=== PATIENT | male | born 1965 | race Caucasian/White ===

== ENCOUNTER 2023-01-12 03:25 | Emergency (ER) | payer MEDICARE, MEDICAID, SELFPAY ==
[2023-01-12 03:41] VITALS: BP 159/99; PULSE 72; RESP 16; TEMP 36.3; O2SAT 97; BMI 30.4
== END 2023-01-12 04:43 | disposition left against medical advice (07) ==
PROVIDERS: Emergency Provider Emergency Medicine
DX: I10 Essential (primary) hypertension (principal)
CPT/HCPCS: 99281

== ENCOUNTER 2023-10-12 11:13 | Outpatient (REF) | payer MEDICARE, MEDICAID, SELFPAY ==
--- NOTE | ~2023-10-12 | XR_ITS ---
EXAMINATION: XR KNEE, RIGHT CLINICAL INFORMATION: Osteoarthritis. COMPARISON: Radiograph right knee 09/19/2013. TECHNIQUE: Four views of the right knee. FINDINGS: No fracture or subluxation. Mild tricompartmental joint space narrowing with small marginal osteophytes. Faint chondrocalcinosis in the medial and lateral compartments. No osseous erosions. No joint effusion. XR/XR knee RT 4V IMPRESSION: 1. No acute fracture or subluxation. 2. Mild tricompartmental degenerative osteoarthritis. 3. Faint chondrocalcinosis.
--- NOTE | ~2023-10-12 | XR_ITS ---
EXAMINATION: XR HIP, RIGHT CLINICAL INFORMATION: Pain. COMPARISON: Radiograph pelvis and right hip 06/26/2022. TECHNIQUE: Two views of the right hip. FINDINGS: Again noted end-stage degenerative osteoarthritis of the right hip with bone on bone contact along the superolateral aspect of the acetabulum. Increased deformity/volume loss of the superolateral aspect of the femoral head with increased subcortical cystic changes in the superolateral femoral head and superolateral acetabulum. No significant soft tissue abnormality. XR/XR hip RT min 2V IMPRESSION: Findings most suggestive of progression of end-stage degenerative osteoarthritis of the right hip with avascular necrosis of the femoral head.
[2023-10-12 13:23] LABS: MANUAL DIFF FLAG NO
[2023-10-12 13:41] LABS: Basophils Percent Auto 0.9 % (0-2); Eosinophils Absolute Auto 0.1 X10*3/uL (0.0-0.4); Eosinophils Percent Auto 1.2 % (0-4); Hematocrit 51.6 % (42.0-52.0); Hemoglobin 17.1 g/dl (14.0-18.0); Imm Gran Abs Auto 0.01 X10*3/uL (0.00-0.03); Imm Gran Pct Auto 0.2 % (0.0-0.4); Lymphocytes Absolute Auto 0.9 X10*3/uL (1.2-4.9); Mean Corpuscular HGB Conc 33.1 g/dl (31.0-36.0); Mean Corpuscular Hemoglobin 26.7 pg (27.0-33.0); Mean Corpuscular Volume 80.6 fL (80.0-98.0); Mean Platelet Volume 10.5 fL (9.4-12.4); Monocytes Absolute Auto 0.3 X10*3/uL (0.1-1.2); Monocytes Percent Auto 7.4 % (2-11); Neutrophils Percent Auto 70.3 % (45-73); Platelet Count 211 X10*3/uL (160-400); Red Cell Distribution Width 12.6 % (11.0-16.0); White Blood Count 4.3 X10*3/uL (4.8-10.8)
[2023-10-12 14:24] LABS: Alanine Aminotransferase 17 U/L (0-40); Albumin Level 4.1 g/dL (3.5-5.0); Alkaline Phosphatase 67 U/L (39-117); Anion Gap 13 (12-20); Aspartate Amino Transferase 17 U/L (5-37); Bilirubin Total 0.6 mg/dL (0.0-1.0); Blood Urea Nitrogen 12 mg/dL (9-16); Calcium 9.5 mg/dL (8.4-10.2); Carbon Dioxide 26 mmol/L (22-29); Chloride 105 mmol/L (96-108); Cholesterol 161 mg/dL (<200); Estimated Glomerular Filt Rate > 60; Glucose Random 93 mg/dL (60-115); HDL Cholesterol 49 mg/dL (>40); LDL Cholesterol Calculated 86 mg/dL (<100); Potassium 3.8 mmol/L (3.3-5.1); Sodium 140 mmol/L (135-145); Total Protein 7.6 g/dL (6.5-8.0); Triglycerides 133 mg/dL (<150)
[2023-10-12 14:25] LABS: Prostate Specific Antigen Scr 10.11 ng/mL (<0.05-4.0)
== END 2023-10-12 11:14 | disposition home or self-care (01) ==
LOC: HO.10HDL 11:13
PROVIDERS: Visit Provider Internal Medicine
DX: Z12.5 Encounter for screening for malignant neoplasm of prostate (principal); M16.0 Bilateral primary osteoarthritis of hip; M17.0 Bilateral primary osteoarthritis of knee; I10 Essential (primary) hypertension; M19.91 Primary osteoarthritis, unspecified site; N40.1 Benign prostatic hyperplasia with lower urinary tract symptoms; Z72.0 Tobacco use; Z91.199 Patient's noncompliance with other medical treatment and regimen due to unspecified reason
CPT/HCPCS: 36415; 73502; 73564; 80053; 80061; 84153; 85025

== ENCOUNTER 2024-01-03 14:26 | Outpatient (AMB) | payer MEDICARE, MEDICAID, SELFPAY ==
--- NOTE | 2024-01-03 14:47 | A.OFFVIS_ITS ---
Intake Visit Reasons: Elevated PSA Intake Note: NEW Patient presents today to established treatment for Elevated PSA: Meds- Tamsulosin Allergies to Antibiotic- No Known Allergies Blood Thinner- None Unable to void Post Void Residual: 55 mL Rolling Mill Plugger Required: No Accompanied by: Self / Same As Patient Allergies spider venom [SPIDER BITES] Allergy (Unknown, Verified 01/03/24 14:50) SWELLING HPI Comments Details: Nikhil is a 58-year-old male who is here for evaluation due to elevated PSA. The patient states he was started on tamsulosin by his primary due to obstructive voiding symptoms. He states that when he forgets to take the medication he is getting up more times at night to urinate up to 5 times. I have discussed prostate biopsies for further evaluation following repeat PSA. The patient was unable to provide a urine sample. Bladder scan PVR 55 mL Prostate exam--mild to moderately enlarged, irregular area palpated on the right side. Plan repeat PSA schedule prostate biopsy. 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, left hip HTN (hypertension) Elevated PSA Surgical History History of surgery History of total hip replacement Hx of laminectomy History of hip surgery Family History Father CAD (coronary artery disease) Mother Kidney disease Social History Alcohol intake: current Alcohol intake frequency: holidays/special occasions only Patient Tobacco Use Status: Current everyday Tobacco user Review of Systems Const All systems reviewed & are unremarkable except as noted in HPI and below Reports no additional complaints Eyes Reports no additional complaints ENT Reports no additional complaints Card Reports no additional complaints Resp Reports no additional complaints GI Reports no additional complaints Reports as per HPI Musc Reports no additional complaints Skin/Breast Reports system reviewed and no additional complaints, except as documented Neuro Reports no additional complaints Psych Reports no additional complaints Endo Reports no additional complaints Jaiden/Lymph Reports no additional complaints Aller/Immun Reports no additional complaints Physical Exam Const General: healthy appearing, no acute distress and well developed Orientation/consciousness: patient oriented x3 HEENT Head: Yes normocephalic and Yes atraumatic Eyes Conjunctivae: conjunctivae normal Neck Neck: Yes normal visual inspection Chest Chest palpation & inspection: normal inspection of the chest Resp Effort & Inspection: normal respiratory effort Cardio Rate: regular rate GI Inspection: Yes normal to inspection Palpation (GI): Soft to palpation Other: Prostate Exam: Mild to moderately enlarged irregular/firm right side Penis: normal penis Scrotum: scrotum normal Skin General skin exam: no rashes or lesions noted Neuro General: patient oriented x3 Extrem General: No pedal edema Psych Appearance: grossly normal Affect: normal affect Office Procedures Post Void Residual Post Residual Void Post Void Residual (PVR): 55 [id number] Void Residual by ultrasound Assessment & Plan Assessment & Plan (1) Abnormality detected on rectal examination of prostate: Code(s): N42.9 - Disorder of prostate, unspecified Category: Medical (2) Elevated PSA: Code(s): R97.20 - Elevated prostate specific antigen [PSA] Category: Medical Plan Plan repeat PSA schedule prostate biopsy. Orders: Orders PSA,Total (Free>4and<10) Today N42.9 - Disorder of prostate, unspecified, R97.20 - Elevated prostate specific antigen [PSA] UA and rflx microscopic Today R97.20 - Elevated prostate specific antigen [PSA] AMB Post Void Residual by ultrasound Today N39.8 - Other specified disorders of urinary system Patient Instructions: The patient had an opportunity to ask questions regarding treatment plan. The patient expressed understanding and agreement with the above treatment plan. The patient is aware they should contact our office by phone for worsening of their current condition or the appearance of new symptoms. Compliance is encouraged with any medications and followup testing that is ordered. It is a privilege to be allowed the opportunity to participate in the urologic care of your patient. If you have any questions or concerns regarding treatment for the above conditions please do not hesitate to contact me. The office telephone contact is [phone]. This note is constructed in part using voice recognition software. While every effort has been made to ensure accuracy property inspector errors may have been included. Yours sincerely, Romulo Orozco MD Coding Level of Care Code New Pt Level 4 (27775) Diagnoses Abnormality detected on rectal examination of prostate N42.9 Elevated PSA R97.20 CPT Codes Post Residual Void - PVR CPT Code: 34779-Ilix Void Residual by ultrasound ([id number])
== END 2024-01-03 15:31 | disposition home or self-care (01) ==
LOC: HO.HUSH 14:27
PROVIDERS: PCP Internal Medicine; Visit Provider Urology
DX: N42.9 Disorder of prostate, unspecified (principal); R97.20 Elevated prostate specific antigen [PSA]
CPT/HCPCS: 99204

== ENCOUNTER → 2024-01-03 14:26 | Outpatient (BNVA) | payer MEDICARE, MEDICAID, SELFPAY | PROVIDERS: PCP Internal Medicine; Visit Provider Urology | DX: R97.20 Elevated prostate specific antigen [PSA] (principal); N42.9 Disorder of prostate, unspecified | CPT/HCPCS: 51798; 99202 ==

== ENCOUNTER 2024-02-19 13:39 | Outpatient (REF) | payer MEDICARE, MEDICAID, SELFPAY ==
[2024-02-19 17:04] LABS: PSA,Total (Free>4and<10) 12.33 ng/mL (0.00-4.00)
== END 2024-02-19 13:40 | disposition home or self-care (01) ==
LOC: HO.LAB 13:39
PROVIDERS: PCP Internal Medicine; Visit Provider Urology
DX: N42.9 Disorder of prostate, unspecified (principal); R97.20 Elevated prostate specific antigen [PSA]; Z12.5 Encounter for screening for malignant neoplasm of prostate
CPT/HCPCS: 36415; 84153

== ENCOUNTER 2024-02-21 10:30 | Outpatient (AMB) | payer MEDICARE, MEDICAID, SELFPAY ==
--- NOTE | 2024-02-21 10:31 | A.OFFVIS_ITS ---
Intake Visit Reasons: repeat PSA review Intake Note: Patient presents today for a follow-up on Elevated PSA: Meds- Tamsulosin Allergies to Antibiotic- No Known Allergies Blood Thinner- None MOST RECENT PSA RESULTS: 12.33 ng/mL, 02/19/2024, PSA---10/12/2023--10.11 ng/mL, Save All Operator Required: No Accompanied by: Self / Same As Patient Allergies spider venom [SPIDER BITES] Allergy (Unknown, Verified 01/03/24 14:50) SWELLING Medication List - Last Reconciled 02/21/24 by Romulo Orozco MD ciprofloxacin HCl 500 mg PO BID losartan-hydrochlorothiazide 50-12.5 mg 1 tab PO DAILY nicotine (Nicoderm CQ) 1 patch transdermal DAILY tamsulosin 0.4 mg PO DAILY HPI Comments Details: 02/21/2024--I have discussed with Nikhil repeat PSA results:02/19/2024,-- 12.33 ng/mL, PSA---10/12/2023--10.11 ng/mL, I have discussed scheduling prostate biopsy. Will place on Cipro 500 mg twice a day 1 day prior to biopsy for 3 days. Discussed risks to include but not limited to pain, blood in stool, urine and semen, septicemia, need to repeat biopsy. Nikhil states that he has right hip replacement scheduled at [facility] on April 28. Discussed avoid blood thinners including NSAIDs and aspirin. 30 minutes spent in review of records pertaining to this visit and including discussion with the patient and documentation of this visit. Review of chart: 01/03/24--Nikhil is a 58-year-old male who is here for evaluation due to elevated PSA. The patient states he was started on tamsulosin by his primary due to obstructive voiding symptoms. He states that when he forgets to take the medication he is getting up more times at night to urinate up to 5 times. I have discussed prostate biopsies for further evaluation following repeat PSA. The patient was unable to provide a urine sample. Bladder scan PVR 55 mL Prostate exam--mild to moderately enlarged, irregular area palpated on the right side. Plan repeat PSA schedule prostate biopsy. 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, left hip HTN (hypertension) Elevated PSA Surgical History History of surgery History of total hip replacement Hx of laminectomy History of hip surgery Family History Father CAD (coronary artery disease) Mother Kidney disease Social History Alcohol intake: current Alcohol intake frequency: holidays/special occasions only Patient Tobacco Use Status: Current everyday Tobacco user Review of Systems Const All systems reviewed & are unremarkable except as noted in HPI and below Reports no additional complaints Eyes Reports no additional complaints ENT Reports no additional complaints Card Reports no additional complaints Resp Reports no additional complaints GI Reports no additional complaints Reports as per HPI Musc Reports no additional complaints Skin/Breast Reports system reviewed and no additional complaints, except as documented Neuro Reports no additional complaints Psych Reports no additional complaints Endo Reports no additional complaints Jaiden/Lymph Reports no additional complaints Aller/Immun Reports no additional complaints Telehealth Telehealth Telehealth Platform: [facility] Location of provider rendering services: practice address Location of patient: address on file Patient Identification confirmed using: Name, : Yes Telehealth method: voice only Patient verbally consented to treatment: Yes Patient verbally consented to billing insurance company: Yes Patient informed of any privacy concerns related to visit: Yes Minutes spent on Phone/Video with Pt.: 20 Assessment & Plan Assessment & Plan (1) Abnormality detected on rectal examination of prostate: Code(s): N42.9 - Disorder of prostate, unspecified Category: Medical (2) Elevated PSA: Code(s): R97.20 - Elevated prostate specific antigen [PSA] Category: Medical Plan Plan repeat PSA schedule prostate biopsy. Medications: New ciprofloxacin HCl Start antibiotic 1 day prior to scheduled prostate biopsy 500 mg PO BID 6 tabs 0RF Patient Instructions: The patient had an opportunity to ask questions regarding treatment plan. The patient expressed understanding and agreement with the above treatment plan. The patient is aware they should contact our office by phone for worsening of their current condition or the appearance of new symptoms. Compliance is encouraged with any medications and followup testing that is ordered. It is a privilege to be allowed the opportunity to participate in the urologic care of your patient. If you have any questions or concerns regarding treatment for the above conditions please do not hesitate to contact me. The office telephone contact is [phone]. This note is constructed in part using voice recognition software. While every effort has been made to ensure accuracy it lead errors may have been included. Yours sincerely, Romulo Orozco MD Coding Level of Care Code Tele Est Pt Level 4 (60812) Diagnoses Abnormality detected on rectal examination of prostate N42.9 Elevated PSA R97.20
--- OUTSIDE RECORDS SUMMARY | 2024-02-21 10:32 | XMS_ITS | Continuity of Care Document ---
Author Organization [facility] ter Address [address] [place] [id number]- Care Team Providers Care Bottom Cager Name Role Phone Kristyn Ramírez MD Primary Care Physician [phone] [place] [facility] [place] 11/13/21 - 11/18/[address] [address]- Encounter Diagnosis Concussion(Final) - 11/14/21 Discharge Disposition: A-D/C Home Attending Physician: Troy Fonseca MD Admitting Physician: Troy Fonseca MD Referring Physician: Not on Staff, Referring MD Allergies, Adverse Reactions, Alerts No Known Allergies Immunizations Given and Recorded Vaccine Date Status Refusal Reason influenza virus vaccine, inactivated 11/14/21 Give n SARS-CoV-2 (COVID-19) mRNA BNT-162b2 vac 06/06/21 Recorded SARS-CoV-2 (COVID-19) mRNA BNT-162b2 vac 05/19/21 Recorded Medications acetaminophen 325 mg oral tablet 975 mg, 3, tablet, By Mouth, Every 6 hours, # 30 tablet, Refills 0, Tot. Refills 0, Maintenance, 11/18/21 10:28:00 EST, Route to Pharmacy Electronically, [facility]/pharmacy #[id number], Partial fill upon patientrequest if the prescription is for a schedule II op... Start Date: 11/18/21 Status: Ordered amLODIPine 5 mg oral tablet 5 mg, Tablet, By Mouth, Hold for: SBP < 110, 11/18/21 9:00:00 EST Start Date: 11/18/21 Stop Date: 11/18/21 Status: Completed amLODIPine 5 mg oral tablet 5 mg, 1, tablet, By Mouth, Daily, # 30 tablet, Refills 0, Tot. Refills 0, Maintenance, 11/18/21 10:28:00 EST, Route to Pharmacy Electronically, [facility]/pharmacy #[id number], Partial fill upon patient request if the prescription is for a schedule II opioid drug.... Start Date: 11/18/21 Status: Ordered folic acid 1 mg oral tablet 1 mg, 1, tablet, By Mouth, Daily, # 30 tablet, Refills 0, Tot. Refills 0, Maintenance, 11/18/21 10:28:00 EST, Route to Pharmacy Electronically, [facility]pharmacy #[id number], Partial fill upon patient request if the prescription is for a schedule II opioid drug.... Start Date: 11/18/21 Status: Ordered gabapentin 100 mg oral capsule 100 mg, Capsule, By Mouth, 11/18/21 9:00:00 EST, Stop date 11/18/21 9:00:00 EST Start Date: 11/18/21 Stop Date: 11/18/21 Status: Completed gabapentin 100 mg oral capsule 100 mg, 1, capsule, By Mouth, 3 times a day, # 90 capsule, Refills 0, Tot. Refills 0, Maintenance, 11/18/21 10:28:00 EST, Route to Pharmacy Electronically, [facility]pharmacy [id number], Partial fill upon patient request if the prescription is for a schedule II... Start Date: 11/18/21 Status: Ordered ibuprofen 600 mg oral tablet 600 mg, Tablet, By Mouth, 11/18/21 9:00:00 EST, Stop date 11/18/21 9:00:00 EST Start Date: 11/18/21 Stop Date: 11/18/21 Status: Completed ibuprofen 600 mg oral tablet 600 mg, 1, tablet, By Mouth, 3 times a day, with food or milk, # 30 tablet, Refills 0, Tot. Refills0, Maintenance, 11/18/21 10:28:00 EST, Route to Pharmacy Electronically, [id number], Partial fill upon patient request if the prescription is f... Start Date: 11/18/21 Status: Ordered Multivitamin Tablet 1 tablet, By Mouth, Daily, 0 Refills, Maintenance, 11/18/21 10:17:00 EST, Tablet, Partial fill uponpatient request if the prescription is for a schedule II opioid drug. Start Date: 11/18/21 Status: Ordered oxyCODONE 5 mg oral tablet 5 mg, 1, tablet, By Mouth, Every 4 hours, PRN, # 5 tablet, Refills 0, Tot. Refills 0, Maintenance, Pain , Severe, 11/18/21 10:28:00 EST, Route to Pharmacy Electronically, [facility]/pharmacy #[id number], Partial fill upon patient request if the prescription is for... Start Date: 11/18/21 Status: Ordered oxyCODONE 5 mg oral tablet 5 mg, Tablet, By Mouth, Every 4 hours for 7 days, Hold for: SBP < 90, HR < 60, RR < 8, PRNfor Pain , Severe, Routine, 11/13/21 11:16:00 EST, Stop date 11/20/21 11:15:00 EDT Start Date: 11/13/21 Stop Date: 11/18/21 Status: Discontinued pyridoxine 50 mg oral tablet 50 mg, 1, tablet, By Mouth, Daily, # 30 tablet, Refills 0, Tot. Refills 0, Maintenance, 11/18/21 10:27:00 EST, Route to Pharmacy Electronically, [facility]acy [id number], Partial fill upon patient request if the prescription is for a schedule II opioid drug... Start Date: 11/18/21 Status: Ordered thiamine 100 mg oral tablet 100 mg, 1, tablet, By Mouth, Every 12 hours, # 90 tablet, Refills 0, Tot. Refills 0, Maintenance, 11/18/21 10:18:00 EST, Route to Pharmacy Electronically, [id number], Partial fill upon patient request if the prescription is for a schedule II o... Start Date: 11/18/21 Status: Ordered Problem List Condition Effective Dates Status Health Status Inform ant Abscess of R forearm(Confirmed) Active CKD (chronic kidney disease) stage 3, GFR 30-59 ml/min(Confirmed) Active Chronic lower back pain(Confirmed) Active Chronic low back pain(Confirmed) Active Renal cyst, right(Confirmed) Active History of intravenous drug abuse(Confirmed) Active Obese class I(Confirmed) Active Opioid dependence(Confirmed) Active OA (osteoarthritis) of knee(Confirmed) Active Inguinal hernia, right(Confirmed) Active Substance use disorder(Confirmed) Active Results Radiology Reports * Exam Date Time Procedure Performing Provider Status 11/13/21 8:16 AM Hand Min 3 Views Left Nenita Hinton; Osman (Verified) Notes: (Hand Min 3 Views Left) Reason For Exam: Trauma RESULT: Hand Min 3 Views Left Hand Min 3 Views Left, 3 views Reason: Trauma; Clinical Question(s): Fracture COMPARISON: None. FINDINGS: Severe first CMC osteoarthritis. No evidence of fracture or dislocation. IMPRESSION: No evidence of fracture or dislocation. Severe first CMC osteoarthritis WSN: [id number] Ordering Physician: Nisreen Valdivia Dictated By: Tapan Caba MD Dictated Date/Time: 11/13/21 8:27 am Reviewed By: Tapan Caba MD Signed By: Tapan Caba MD Signed Date/Time: 11/13/21 8:27 am Transcribed By: SAUL Transcribed Date/Time: 11/13/21 8:25 am * Exam Date Time Procedure Performing Provider Status 11/13/21 8:16 AM Knee 1 or 2 Views Right Nenita Hinton ; Osman (Verified) Notes: (Knee 1 or 2 Views Right) Reason For Exam: Trauma RESULT: Knee 1 or 2 Views Right Knee 1 or 2 Views Right, 2 views Reason: Trauma; Clinical Question(s): Fracture; Special Instructions: Patella ([place]) COMPARISON: None. FINDINGS: There is no evidence of acute fracture or dislocation. There are tricompartment osteoarthritic changes with spurring. Evaluation of the patella is limited because a sunrise view was not obtained. IMPRESSION: Degenerative changes without evidence of acute fracture or dislocation. Evaluation of the patella is limited because a sunrise view was not obtained. WSN: [id number] Ordering Physician: Nisreen Valdivia Dictated By: Alyssa St MD Dictated Date/Time: 11/13/21 8:21 am Reviewed By: Alyssa St MD Signed By: Alyssa St MD Signed Date/Time: 11/13/21 8:21 am Transcribed By: SAUL Transcribed Date/Time: 11/13/21 8:18 am * Exam Date Time Procedure Performing Provider Status 11/13/21 8:16 AM Tibia/Fibula 2 Views Left Matthew Hinton (Verified) Notes: (Tibia/Fibula 2 Views Left) Reason For Exam: Trauma RESULT: Tibia/Fibula 2 Views Left Tibia/Fibula 2 Views Left Reason: Trauma; Clinical Question(s): Fracture COMPARISON: None. FINDINGS: No fractures or bone lesions. Visualized joints are normal. Normal soft tissues. IMPRESSION: Normal. WSN: [id number] Ordering Physician: Nisreen Valdivia Dictated By: Alyssa St MD Dictated Date/Time: 11/13/21 8:18 am Reviewed By: Alyssa St MD Signed By: Alyssa St MD Signed Date/Time: 11/13/21 8:18 am Transcribed By: SAUL Transcribed Date/Time: 11/13/21 8:17 am * Exam Date Time Procedure Performing Provider Status 11/13/21 7:39 AM Chest Portable Tracy Mai; Auth (V erified) Notes: (Chest Portable) Reason For Exam: Other: RESULT: Chest Portable Chest Portable Reason: Other:; Clinical Question(s): Trauma COMPARISON: None. FINDINGS: LINES AND TUBES: None. LUNGS AND PLEURA: Clear lungs. Normal pulmonary vascularity. No pleural effusion. No pneumothorax. HEART, MEDIASTINUM AND CATHY: Heart is normal in size. Normal upper mediastinal and hilar contour. BONES AND SOFT TISSUES: No acute abnormality. IMPRESSION: No acute abnormality. WSN: [id number] Ordering Physician: Nisreen Valdivia Dictated By: Alyssa St MD Dictated Date/Time: 11/13/21 7:50 am Reviewed By: Alyssa St MD Signed By: Alyssa St MD Signed Date/Time: 11/13/21 7:50 am Transcribed By: SAUL Transcribed Date/Time: 11/13/21 7:49 am * Exam Date Time Procedure Performing Provider Status 11/13/21 7:39 AM Pelvis 1 or 2 Views Tracy Mai; Au th (Verified) Notes: (Pelvis 1 or 2 Views) Reason For Exam: Trauma RESULT: Pelvis 1 or 2 Views Pelvis 1 or 2 Views Reason: Trauma; Clinical Question(s): Other: COMPARISON: None. FINDINGS: Status post total left hip arthroplasty. There is a cortical step-off at the superior right pubic ramus. There are pelvic calcifications compatible with phleboliths. IMPRESSION: Cortical step-off at the superior right pubic ramus which may represent a minimally displaced fracture. Clinical correlation and follow-up is recommended. A [facility] message has been communicated via the [employer] system on 11/13/2021 8:16 AM, Message ID [id number]. WSN: [id number] Ordering Physician: Nisreen Valdivia Dictated By: Alyssa St MD Dictated Date/Time: 11/13/21 8:16 am Reviewed By: Alyssa St MD Signed By: Alyssa St MD Signed Date/Time: 11/13/21 8:16 am Transcribed By: SAUL Transcribed Date/Time: 11/13/21 7:43 am Vital Signs Most recent to oldest [Reference Range]: 1 2 3 Height 172.7 cm (11/18/21 7:28 AM) 172.7 cm (11/17/21 3:41 PM) 172.7 cm (11/17/21 11:43 AM) Weight 91.54 kg (11/18/21 9:52 AM) 91.7 kg (11/13/21 6:54 PM) 91.7 kg (11/13/21 6:28 PM) Oxygen Saturation [94-100 %] 100 % (11/18/21 7:28 AM) 98 % (11/18/21 4:00 AM) 95 % (11/18/21 12:00 AM) Pulse Rate [55-90 bpm] 67 bpm (11/18/21 7:28 AM) 59 bpm (11/18/21 4:00 AM) 60 bpm (11/18/21 12:00 AM) Body Mass Index [18.5-24.99] 30.75 *>HHI* (11/13/21 6:54 PM) 30.75 *>HHI* (11/13/21 6:28 PM) Blood Pressure [90-138/55-84 mm Hg] 148/88mm Hg *H* (11/18/21 9:15 AM) 148/88mm Hg *H* (11/18/21 7:28 AM) 116/53mm Hg (11/18/21 4:00 AM) Respiratory Rate [16-30 br/min] 18 br/min (11/18/21 12:05 PM) 16 br/min (11/18/21 10:34 AM) 16 br/min (11/18/21 10:34 AM) Temperature [96.8-100.4 DegF] 97.8 DegF (11/18/21 7:28 AM) 98.1 DegF (11/18/21 4:00 AM) 97.8 DegF (11/18/21 12:00 AM) Mode of Delivery (Oxygen) Room air (11/18/21 7:28 AM) Room air (11/18/21 4:00 AM) Room air (11/18/21 12:00 AM) Blood pressure sites Arm, right (11/18/21 7:28 AM) Arm, left (11/18/21 4:00 AM) Arm, left (11/18/21 12:00 AM) Temperature Route Oral (11/18/21 7:28 AM) Oral (11/18/21 4:00 AM) Oral (11/18/21 12:00 AM) Dry Weight 91.7 kg (11/13/21 6:54 PM) 91.7 kg (11/13/21 6:28 PM) Weight Obtained Via Bed scale (11/13/21 6:54 PM) Bed scale (11/13/21 6:28 PM) Dry Weight Obtained Via Bed scale (11/13/21 6:54 PM) Social History Social History Type Response Smoking Status Current every day delfino vaca entered on: 04/13/16 Sex
== END 2024-02-21 14:42 | disposition home or self-care (01) ==
LOC: HO.HUSH 10:30
PROVIDERS: PCP Internal Medicine; Visit Provider Urology
DX: N42.9 Disorder of prostate, unspecified (principal); R97.20 Elevated prostate specific antigen [PSA]
CPT/HCPCS: 99214

== ENCOUNTER → 2024-02-21 10:30 | Outpatient (BNVA) | payer MEDICARE, MEDICAID, SELFPAY | PROVIDERS: PCP Internal Medicine; Visit Provider Urology ==

== ENCOUNTER 2024-04-22 10:39 | Outpatient (REF) | payer MEDICARE, MEDICAID, SELFPAY ==
--- NOTE | 2024-04-22 | EMG_ITS ---
Bilateral median and ulnar motor and sensory studies were performed. Bilateral radial sensory studies were performed, and paraspinal muscles were tested with a needle. IMPRESSION: 1. Moderately severe bilateral median neuropathy across carpal tunnel. 2. Mild to moderate bilateral ulnar neuropathy across cubital tunnel. 3. Left radial sensory neuropathy. MD PATRICIA Fraser/RADHA / [id number]
== END 2024-04-22 10:40 | disposition home or self-care (01) ==
LOC: HO.NEURO 10:39
PROVIDERS: PCP Internal Medicine; Visit Provider Internal Medicine
DX: G56.03 Carpal tunnel syndrome, bilateral upper limbs (principal)
CPT/HCPCS: 95886; 95911

== ENCOUNTER 2024-05-08 04:11 | Emergency (ER) | payer MEDICARE, MEDICAID, SELFPAY ==
[2024-05-08 04:28] VITALS: BP 106/61; PULSE 81; RESP 16; TEMP 36.9; O2SAT 98; BMI 28.7
--- NOTE | 2024-05-08 05:08 | ED.EXTPRO ---
HPI - Extremity Problem General Chief complaint: Extremity Problem Stated complaint: L arm pain Time Seen by Provider: 05/08/24 05:08 Source: patient Mode of arrival: ambulatory Limitations: no limitations History of Present Illness ED Provider: Dr. Woods HPI Narrative: Patient with a history of IVDU, cervical spine surgery with cervical radiculopathy who presents with numbness to his left hand. Patient shows his numbness to his hand to be in the median nerved distribution but has had prior carpal tunnel surgery. He had an EMG 10 days ago but does not know the results. He also describes the pain radiating down the left side of his neck. He has had prior cervical spine surgery. MD Complaint: extremity pain Onset (ago): month(s) Related Data Home Medications ?Medication ?Instructions ?Recorded ?Confirmed losartan 50 mg-hydrochlorothiazide 1 tab PO DAILY 01/03/24 02/21/24 12.5 mg tablet nicotine 21 mg/24 hr daily 1 patch transdermal DAILY 01/03/24 02/21/24 transdermal patch (Nicoderm CQ) tamsulosin 0.4 mg capsule 0.4 mg PO DAILY 01/03/24 02/21/24 Previous Rx's ?Medication ?Instructions ?Recorded ciprofloxacin HCl 500 mg tablet 500 mg PO BID #6 tabs 02/21/24 pregabalin 100 mg capsule (Lyrica) 100 mg PO BID #20 caps 05/08/24 Allergies Allergy/AdvReac Type Severity Reaction Status Date / Time spider venom [SPIDER BITES] Allergy Unknown SWELLING Verified 05/08/24 04:31 Review of Systems Review of Systems: Yes all other systems are reviewed and are negative Neurologic: Denies Sensory deficit (Neuro) PMFSH Past Medical History Medical History Other osteonecrosis, 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, left hip HTN (hypertension) Elevated PSA Surgical History History of surgery History of total hip replacement Hx of laminectomy History of hip surgery Family History Family History Father CAD (coronary artery disease) Mother Kidney disease Social History Social History Alcohol intake: current Alcohol intake frequency: holidays/special occasions only Patient Tobacco Use Status: Current everyday Tobacco user Physical Exam Vital Signs: Vital Signs: Last Vital Signs Temp 98.1 F 05/08/24 05:23 Pulse 77 05/08/24 05:23 Resp 18 05/08/24 05:23 BP 112/67 05/08/24 05:23 Pulse Ox 97 05/08/24 05:23 O2 Del Method Room Air 05/08/24 05:23 BMI result Body Mass Index 28.7 Const: General: healthy appearing Nutritional Appearance: average body habitus Orientation/consciousness: oriented to person and patient oriented x3 Limitations: no limitations HEENT: Head: Yes normal to inspection Ears: external ears normal General nose exam: Normal external nose present Mouth: Normal oral and palatal mucosa present and oropharynx normal Throat: Yes posterior oropharynx normal Eyes: General: appearance normal, both eyes and all related structures Neck: Other: supple Neck: Yes normal visual inspection Chest: Chest palpation & inspection: normal inspection of the chest Resp: Auscultation: clear to auscultation bilaterally Cardio: Jugular venous distension: no JVD Rate: regular rate Rhythm: regular rhythm Heart sounds: S1 normal heart sound present and S2 normal heart sound present GI: Inspection: Yes normal to inspection Palpation (GI): Soft to palpation, nontender and No hepatosplenomegaly present Auscultation: normal bowel sounds : General: Yes no CVA tenderness Back/Spine/Pelvis: Back: no CVA tenderness Skin: Other: old track gonzales to both arms Neuro: General: oriented to person and patient oriented x3 Cranial nerves: Yes CN's II-XII intact bilaterally Motor exam (neuro): 5/5 motor strength present throughout Sensory Exam: No Sensory deficit (Neuro) Extrem: Other: good bilateral pulses General: Yes normal to inspection Psych: Appearance: grossly normal Course Reevaluation(s) Reevaluation #1: Patient with a description of cervical radiculopathy and carpal tunnel. Will start lyrica and have the patient follow up for his EMG results. Will refer to Dr. Snider Time: 05:31 Medications Administered Discontinued Medications Generic Name Dose Route Start Last Admin Trade Name Freq PRN Reason Stop Dose Admin Gabapentin 300 mg 05/08/24 05:17 05/08/24 05:27 Gabapentin 300 Mg Capsule PO 05/08/24 05:18 Not Given ONCE ONE Pregabalin 100 mg 05/08/24 05:29 05/08/24 05:33 Pregabalin 100 Mg Capsule PO 05/08/24 05:30 100 mg ONCE ONE Administration Medical Decision Making Differential Diagnosis Differential Diagnoses: The differential diagnosis associated with the presentation includes (cervical radiculopathy, carpal tunnel) Tests considered The following testing was considered but not selected: MRI of cervical spine but patient nonfocal and has had prior surgery Social Determinants Patient?s care significantly limited by Social Determinants of Health including: Alcoholism and drug addiction in family Discharge Plan Discharge Clinical Impression: Cervical disc disorder with radiculopathy, Carpal tunnel syndrome Patient Disposition: Home, Self-Care Instructions: Cervical Disc Herniation (ED), Carpal Tunnel Surgery (DC) Prescriptions: New pregabalin [Lyrica] 100 mg capsule 100 mg PO BID Qty: 20 0RF No Action tamsulosin 0.4 mg capsule 0.4 mg PO DAILY losartan-hydrochlorothiazide 50-12.5 mg tablet 1 tab PO DAILY nicotine [Nicoderm CQ] 21 mg/24 hr patch 24 hour 1 patch transdermal DAILY ciprofloxacin HCl 500 mg tablet 500 mg PO BID Qty: 6 0RF Rx Instructions: Start antibiotic 1 day prior to scheduled prostate biopsy Referrals: Kathie Villalta MD [Physician] - 3 days Print Language: Maltese
[2024-05-08 05:23] VITALS: BP 112/67; PULSE 77; RESP 18; TEMP 36.7; O2SAT 97
[2024-05-08] MEDS: Pregabalin 100 MG CAPSULE PO (05:33)
[2024-05-08 05:40] VITALS: BP 112/67; PULSE 77; RESP 18; TEMP 36.7; O2SAT 97
--- OUTSIDE RECORDS SUMMARY | 2024-05-08 06:03 | XMS_ITS ---
Author Organization [facility] Address [address] [place] [address] Phone Care Team Providers Care Oracle Programmer Name Role Phone [facility] Unavailable [phone] Plan of Treatment No Plan of Treatment Recorded Assessments Includes: Assessments for all patient encounters No Assessments Recorded Medical Equipment - Implanted Devices Includes: Current and historical Devices No Medical Equipment Recorded Medications Administered Includes: Administered Medications in patient's chart No Administered Medications Recorded Results Includes: Results from 05/08/2023 through 05/08/2024 No Results Recorded For Specified Dates History of Present Illness History of Present Illness not supported for this document type No History of Present Illness Recorded Social History No Social History Recorded - Smoking Status Unknown Medical History Includes: Medical History in patient's chart No Medical History Recorded Family History Includes: Family History in patient's chart No Family History Recorded Review of Systems Review of Systems not supported for this document type No Review of Systems Recorded Mental Status No Mental Status Recorded Functional Status No Functional Status Recorded Physical Exam Physical Exam not supported for this document type No Physical Exam Recorded Insurance Includes: Active Insurance Policies Plan Name Member ID Group # Subscriber Relationship Effect leroy Dates 1 - Medicare Part B of [place] [id number] ALLA Tinsley 2 - Health Safety Net - [facility] [id number] ALLA Tinsley Clinical Notes Includes: Signed Clinical Notes starting from 08/20/2022 No Clinical Notes Recorded
--- OUTSIDE RECORDS SUMMARY | 2024-05-08 06:04 | XMS_ITS | Clinical Summary ---
Author Organization [facility] Address [address] [place] [address] Phone Care Team Providers Care Wall Taper Helper Name Role Phone [facility] Unavailable Unavailable Reason for Visit and Chief Complaint Post Op Visit/Follow Up Plan of Treatment No Plan of Treatment Recorded Assessments Includes: Assessments from this encounter No Assessments Recorded Medical Equipment - Implanted Devices Includes: Current Devices No Medical Equipment Recorded Medications Administered Includes: Administered Medications from this encounter No Administered Medications Recorded Results Includes: Results discussed during this encounter No Results Recorded For Specified Dates History of Present Illness Includes: History of Present Illness from this encounter No History of Present Illness Recorded Social History No Social History Recorded - Smoking Status Unknown Medical History Includes: Medical History addressed during this encounter No Medical History Recorded Family History Includes: Family History addressed during this encounter No Family History Recorded Review of Systems Includes: Review of Systems from this encounter No Review of Systems Recorded Mental Status Includes: Mental Status from this encounter No Mental Status Recorded Functional Status Includes: Functional Status from this encounter No Functional Status Recorded Physical Exam Includes: Physical Exam from this encounter No Physical Exam Recorded Insurance Includes: Active Insurance Policies Plan Name Member ID Group # Subscriber Relationship Effect leroy Dates 1 - Medicare Part B [facility] [id number] ALLA Tinsley 2 - Health Safety Net - [facility] [id number] ALLA Tinsley Clinical Notes Includes: Clinical Notes from this encounter No Clinical Notes Recorded
--- OUTSIDE RECORDS SUMMARY | 2024-05-08 06:04 | XMS_ITS ---
Care Plan - [facility] Created on: May 08, 2024 ALLA MILLS : 1965 Sex: Male Author Organization [facility] Address [address] [place] [address] Phone Care Team Providers Care Stop Attacher Name Role Phone [facility] Unavailable Unavailable
--- OUTSIDE RECORDS SUMMARY | 2024-05-08 06:04 | XMS_ITS | Patient Health Record ---
Author Organization [facility] Address [address] [place] [address] Care Team Providers Care School Custodian Name Role Phone Kristyn Ramírez Primary Care Provider Unavailab Sanju Ramirez Unavailable [phone] REASON FOR REFERRAL No Information SOCIAL HISTORY Sex Assigned At : Social History Observation Description Sex Assigned At Unknown Encounters Encounter Location Date Provider Diagnosis [facility] [address] [place] [id number] 07/19/2023 Sanju Rodriguez [facility] [address] [place] [phone] 07/19/2023 Sanju Rodriguez PLAN OF TREATMENT No Information Insurance Providers Payer Name Payer Address Payer Phone Subscriber Number Group Number Insured Name Patient Relationship to Insured Coverage Start Date Coverage End Date A[employer] Medicare Advantage Plan [address] [address] [place] [phone] [id number] ALLA MILLS Self - patient is the insured
--- OUTSIDE RECORDS SUMMARY | 2024-05-08 06:04 | XMS_ITS | Clinical Summary ---
Author Organization [facility] Address [address] [place] [address] Phone Care Team Providers Care Automotive Parts Specialist Name Role Phone [facility] Unavailable Unavailable Reason for Visit and Chief Complaint Established Patient Plan of Treatment No Plan of Treatment [...] leroy Dates 1 - Medicare Part B [facility] [id number] ALLA Tinsley 2 - Health Safety Net - [facility] [id number] ALLA Tinsley Clinical Notes Includes: Clinical Notes from this encounter No Clinical Notes Recorded
--- OUTSIDE RECORDS SUMMARY | 2024-05-08 06:04 | XMS_ITS ---
Author Organization [facility] Address [address] [place] [address] Care Team Providers Care Inspector And Unloader Name Role Phone Kristyn Ramírez Primary Care Provider Unavailab Sanju Ramirez Unavailable [phone] REASON FOR VISIT Patient presents today for a COLON SCREENING Encounters Encounter Location Date Provider Diagnosis [facility] [address] [place] [address] 07/19/2023 Sanju Rodriguez PLAN OF TREATMENT No Information
--- OUTSIDE RECORDS SUMMARY | 2024-05-08 06:04 | XMS_ITS | Clinical Summary ---
Author Organization [facility] Address [address] [place] [address] Phone Care Team Providers Care Press Worker Helper Name Role Phone [facility] Unavailable Unavailable Reason for Visit and Chief Complaint Post Op Visit/Follow Up Plan of Treatment Pending Tests Order Diagnosis Results Due Ordering P rovider Follow Up - Appointment 3 weeks Cutaneou s abscess of right upper limb 06/08/22 Bailee Tamayo PA-C Last Documented On 10:43AM ; [facility] Assessments Includes: Assessments from this encounter No Assessments Recorded Medical Equipment - Implanted Devices Includes: Current Devices No Medical Equipment Recorded Medications Administered Includes: Administered Medications from this encounter No Administered Medications Recorded Vital Signs Includes: Vital Signs from this encounter Vital Name 06/08/2022 10:22A Blood Pressure Sitting (mmHg) 138/87 Pulse Rate-Sitting (bpm) 89 Temp-Temporal 97.7 Height (in) 69 Weight (lb) 200 Body Mass Index (kg/m2) 29.5 Body Surface Area (m2) 2.1 Oxygen Saturation (%) 96 Last Documented: On 06/08/2022 10:22A M ; [facility] Results Includes: Results discussed during this encounter [...] Exam Includes: Physical Exam from this encounter Encounters Encounter Provider Location Date Check-In Time Check-Out Time Diagnosis Post Op Visit/Follow Up Bailee Tamayo PA-C [facility] 06/08/20 22 9:20AM 10:36AM Insurance Includes: Active Insurance Policies Plan Name Member ID Group # Subscriber Relationship Effect leroy Dates 1 - Medicare Part B [facility] [id number] ALLA Tinsley 2 - Health Safety [facility] [id number] ALLA Tinsley Clinical Notes Includes: Clinical Notes from this encounter No Clinical Notes Recorded
--- OUTSIDE RECORDS SUMMARY | 2024-05-08 06:04 | XMS_ITS ---
Author Organization [facility] Address [address] [place] [address] Care Team Providers Care Registration Specialist Name Role Phone Kristyn Ramírez Primary Care Provider Unavailab Sanju Ramirez Unavailable [phone] REASON FOR VISIT New pt no show Encounters Encounter Location Date Provider Diagnosis [facility] [address] [place] [address] 07/19/2023 Sanju Rodriguez PLAN OF TREATMENT No Information
== END 2024-05-08 06:11 | disposition home or self-care (01) ==
LOC: HO.ED 06:02
PROVIDERS: Emergency Provider Emergency Medicine; PCP Internal Medicine
DX: M54.12 Radiculopathy, cervical region (principal); G56.02 Carpal tunnel syndrome, left upper limb; M54.2 Cervicalgia; Z79.899 Other long term (current) drug therapy
CPT/HCPCS: 99283; 99284

== ENCOUNTER 2024-06-06 15:04 | Outpatient (AMB) | payer MEDICARE, MEDICAID, SELFPAY ==
--- NOTE | 2024-06-06 15:15 | MHC.OFFVIS ---
Intake Visit Reasons: HIDE STRETCHER HAND- LT hand numbness, CTS Intake Note: Nikhil is a 59 year old right hand dominant male who presents today as a new patient with complaints of left hand numbness and tingling. EMG was done on 04/22/2024. Patient reports he is having pain in his left wrist and numbness and tingling in the 1st, 2nd, 3rd and medial side of 4th digits. He expresses going to ED about 3 weeks ago where he was prescribed Lyrica for his left wrist pain. He expresses relief with this prescription. He expresses difficulty with gripping, grasping, and lifting. He expresses constantly dropping objects. Patient would like to discuss surgery if needed. Hx of Left & Right Carpal Tunnel Releases about 15 years ago. Allergies spider venom [SPIDER BITES] Allergy (Unknown, Verified 06/06/24 15:19) SWELLING HPI HPI HIDE STRETCHER HAND- LT hand numbness, CTS: Details: Patient is a 59-year-old male who presents for evaluation of bilateral hand numbness and tingling, with EMG done revealing moderate to severe carpal tunnel syndrome bilaterally. Of note, the patient has had bilateral carpal tunnel releases previously, approximately 15 years ago. The patient reports that his symptoms are constant, daily, and worse at night on the left, and intermittent, but daily, and worse at night on the right. Patient also states that he has significant pain over the radial styloid of the left wrist that makes it very difficult for him to lift anything heavy or move his left hand. The patient denies any numbness in the bilateral small fingers. No other acute complaints or concerns at this time. 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, left hip HTN (hypertension) Elevated PSA Surgical History History of surgery History of total hip replacement Hx of laminectomy History of hip surgery Family History Father CAD (coronary artery disease) Mother Kidney disease Social History Alcohol intake: current Alcohol intake frequency: holidays/special occasions only Patient Tobacco Use Status: Current everyday Tobacco user Tobacco use type: Cigarette Review of Systems Const All systems reviewed & are unremarkable except as noted in HPI and below Physical Exam Extrem Other: Neuro: Decreased sensation in the median nerve distribution of the left hand. Normal sensation to all other digits in the left hand today. Normal sensation in the tips of all digits of the right hand today. No thenar or intrinsic wasting. Weakened APB muscle belly firing in the left Good finger cross Pain: Patient has significant tenderness to palpation over the radial styloid of the left wrist. Vascular: Capillary refill brisk. ROM: Patient can make a fist and extend all their digits. Skin: No lacerations or abrasions noted. General: No ecchymosis. No erythema or evidence of infection. Positive Inés test in the left Results Reviewed Results Reviewed: IMPRESSION: 1. Moderately severe bilateral median neuropathy across carpal tunnel. 2. Mild to moderate bilateral ulnar neuropathy across cubital tunnel. 3. Left radial sensory neuropathy. MD PATRICIA Fraser/RADHA Assessment & Plan Assessment & Plan (1) Carpal tunnel syndrome, bilateral: Code(s): G56.03 - Carpal tunnel syndrome, bilateral upper limbs Category: Medical (2) De Quervain's tenosynovitis, left: Code(s): M65.4 - Radial styloid tenosynovitis [de Quervain] Category: Medical (3) Cubital tunnel syndrome, bilateral: Code(s): G56.23 - Lesion of ulnar nerve, bilateral upper limbs Category: Medical Plan 1. Carpal tunnel syndrome, left 2. De Quervain tenosynovitis, left Symptoms constant, daily, worse at night I educated the patient about the condition. I discussed both operative and nonoperative treatment options. The patient would like to proceed with surgery. Patient is educated that even with surgery, due to him having Dense numbness, there is an increased risk that he does not get normal sensation back. Patient understands this. The risks and benefits of operative treatment were discussed with the patient and the patient wishes to proceed with surgery. These risks include, but are not limited to, risk of damage to blood vessels, nerves, tendons, infection, recurrence, incomplete relief of preoperative symptoms, persistent pain, possible need for further surgery, and the risks associated with regional blocks and/or anesthesia. Plan is to take the patient to the operating room at some point in the next few weeks for the following procedures: 1. Left carpal tunnel revision under local anesthesia 2. Left 1st dorsal compartment release under local anesthesia All of the preoperative paperwork including the consent was discussed today. All of the patient's questions were answered in the clinic today. The patient understands that they will be in contact with our surgical brace maker to discuss scheduling their procedure. Patient denies diabetes, blood thinners, asthma, heart issues, lung issues. Patient does report that he does have stage 3 chronic kidney disease, and is also a current smoker Patient is educated on the effects of smoking on wound healing, and is counseled that he should stop smoking, not only for wound healing but for a multitude of other health reasons. 3. Carpal tunnel syndrome, right Symptoms intermittent, but daily, worse at night Patient would like to proceed with operative treatment and left side 1st Patient is informed that we can discuss operative treatment on the right when he has begun the postoperative period On the left side if he is healing well Patient is amenable to this plan Patient will follow-up as needed with any acute concerns 4. Bilateral cubital tunnel syndrome Patient denies any numbness in the bilateral small fingers, therefore an any treatment for cubital tunnel syndrome is not necessary at this time Patient is amenable to this plan Coding Level of Care Code New Pt Level 4 (36339) Diagnoses Carpal tunnel syndrome, bilateral G56.03 De Quervain's tenosynovitis, left M65.4 Cubital tunnel syndrome, bilateral G56.23
== END 2024-06-06 15:59 | disposition home or self-care (01) ==
PROVIDERS: PCP Internal Medicine
DX: G56.03 Carpal tunnel syndrome, bilateral upper limbs (principal); M65.4 Radial styloid tenosynovitis [de Quervain]; G56.23 Lesion of ulnar nerve, bilateral upper limbs
CPT/HCPCS: 99204

== ENCOUNTER → 2024-06-06 15:04 | Outpatient (BNVA) | payer MEDICARE, MEDICAID, SELFPAY | PROVIDERS: PCP Internal Medicine | DX: G56.03 Carpal tunnel syndrome, bilateral upper limbs (principal); M65.4 Radial styloid tenosynovitis [de Quervain]; G56.23 Lesion of ulnar nerve, bilateral upper limbs | CPT/HCPCS: 99202 ==

== ENCOUNTER → 2024-06-19 08:51 | Day surgery (SDC) | payer MEDICARE, MEDICAID, SELFPAY ==
--- NOTE | 2024-06-19 10:49 | PC.NURSE ---
patient is dependent on 2 crutches for ambulation while awaiting hip replacement. author requested dr. jansen to speak with patient prior to getting him ready. decision made by dr. jansen to cancel and reschedule. patient to f/u with dr. jansen in office for injection to help with pain while waiting for surgery. patient in agreeance and left with all belongings.
== END ==
LOC: HO.SSS 08:52
PROVIDERS: PCP Internal Medicine; Visit Provider Orthopaedic Surgery
DX: G56.02 Carpal tunnel syndrome, left upper limb (principal); Z53.8 Procedure and treatment not carried out for other reasons; M65.4 Radial styloid tenosynovitis [de Quervain]
CPT/HCPCS: J0171; J2003

== ENCOUNTER 2024-06-30 14:16 | Outpatient (AMB) | payer MEDICARE, MEDICAID, SELFPAY ==
[2024-06-30 14:18] VITALS: BMI 28.6
--- NOTE | 2024-06-30 14:18 | MHC.OFFVIS ---
Vital Signs 06/30/24 14:18 Height 5 ft 8 in Weight 188 lb BMI 28.6 Intake Visit Reasons: New Prob - Right Hip pain Intake Note: Nikhil is a 59 year old male who presents today for a new problem visit with complaints of right hip pain. Patient reports that his right hip has been painful for a few years now. He reports history of a cortisone injection in the right hip about a year ago which was not helpful. He feels pain in the groin and the glute, the pain has started to radiate down thek anterior aspect of the leg. He has pain will all movement but is comfortable at rest. denies numbness and tingling He takes Naproxen which only provides mild relief. Hx of left ETIENNE Allergies spider venom [SPIDER BITES] Allergy (Unknown, Verified 06/30/24 14:54) SWELLING HPI HPI New Prob - Right Hip pain : Details: Nikhil is a 59 year old male who presents today for a new problem visit with complaints of right hip pain. Patient reports that his right hip has been painful for a few years now. He reports history of a cortisone injection in the right hip about a year ago which was not helpful. He feels pain in the groin and the glute, the pain has started to radiate down thek anterior aspect of the leg. He has pain will all movement but is comfortable at rest. denies numbness and tingling He takes Naproxen which only provides mild relief. 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 Results Reviewed Results Reviewed: I personally reviewed relevant radiographs. Severe loss of bony architecture with femoral head collapse consistent with severe OA likely secondary to AVN Assessment & Plan Assessment & Plan (1) Avascular necrosis of bone of right hip: Code(s): M87.051 - Idiopathic aseptic necrosis of right femur Category: Medical Plan: This is a 59-year-old gentleman with severe avascular necrosis right hip. He can not walk in his quality of life is or. I recommend hip replacement on the right. He had 1 on the left and understands the risks, benefits alternatives. I did, however, discuss the risks, benefits and alternatives including but not limited to the risk of pain, infection, stiffness, need for further surgery as well as potential medical complications such as blood clots, pulmonary embolism and cardiac complications. He expressed understanding and we will begin the preoperative clearance process. Coding Level of Care Code Est Pt Level 4 (61022) Diagnoses Avascular necrosis of bone of right hip M87.051
== END 2024-06-30 14:45 | disposition home or self-care (01) ==
PROVIDERS: PCP Internal Medicine; Visit Provider Orthopaedic Surgery
DX: M87.051 Idiopathic aseptic necrosis of right femur (principal)
CPT/HCPCS: 99214

== ENCOUNTER → 2024-06-30 14:16 | Outpatient (BNVA) | payer MEDICARE, MEDICAID, SELFPAY | PROVIDERS: PCP Internal Medicine; Visit Provider Orthopaedic Surgery | DX: M87.051 Idiopathic aseptic necrosis of right femur (principal); G56.03 Carpal tunnel syndrome, bilateral upper limbs; M65.4 Radial styloid tenosynovitis [de Quervain] | CPT/HCPCS: 20550; 99212; J1100; J2003 ==

== ENCOUNTER 2024-06-30 14:53 | Outpatient (AMB) | payer MEDICARE, MEDICAID, SELFPAY ==
--- NOTE | 2024-06-30 14:54 | MHC.OFFVIS ---
Intake Visit Reasons: Inj- D inj Intake Note: Nikhil is a 59 year old right hand dominant male who presents today for an injection in his left hand. Allergies spider venom [SPIDER BITES] Allergy (Unknown, Verified 06/30/24 14:54) SWELLING HPI HPI Inj- D inj: Details: The Patient is a 59-year-old man who had been scheduled for a left carpal tunnel release and a left 1st dorsal compartment release under local anesthesia. Unfortunately however, the patient has hip pain that necessitates him using bilateral crutches for any ambulation. Therefore, when he was seen on the day of surgery his surgery was canceled by me because he was not going to be able to protect the operative sites adequately following surgery. He reportedly was seen by Dr. Bowen today, and I hear that a total hip is planned for sometime in the next couple of months. He would like to have an injection to help him with his left radial sided wrist pain. 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 He is ambulating on bilateral crutches. He is most tender to palpation over the radial aspect of the left wrist directly in line with the 1st dorsal compartment. He has some moderate swelling over the 1st dorsal compartment and a positive Inés test. He can make a fist and extend all of his digits. He does have numbness in the median nerve distribution of the left hand. Normal sensation to the left small finger and half of the ring finger. No intrinsic or thenar wasting. Office Procedures AMB Fracture Care Details: No fracture, injection Fracture Billing Code: Fracture Billing Code Assessment & Plan Assessment & Plan (1) De Quervain's tenosynovitis, left: Code(s): M65.4 - Radial styloid tenosynovitis [de Quervain] Category: Medical (2) Carpal tunnel syndrome, bilateral: Code(s): G56.03 - Carpal tunnel syndrome, bilateral upper limbs Category: Medical Plan Assessment and plan: 1. Carpal tunnel syndrome, left 2. De Quervain tenosynovitis, left Symptoms constant, daily, worse at night I educated the patient about the condition. I discussed both operative and nonoperative treatment options. Surgical treatment is being delayed as he will be unable to protect the operative sites while he is ambulating on crutches. He wishes to proceed with an injection for his de Quervain tenosynovitis. Injection #1: The risks and benefits of a steroid injection including but not limited to risk of damage to blood vessels, nerves, tendons, infection, skin bleaching, failure to improve symptoms, increased pain, and possible need for further injections or other intervention were discussed with the patient and the patient wishes to proceed with the steroid injection. Once consent was obtained, I sterilely prepped the area over the 1st dorsal compartment of the left wrist. I then injected the 1st dorsal compartment tendon sheath with a combination of 1 mL of dexamethasone (4mg/ml), and 1% lidocaine. The patient tolerated the procedure well with no complications. If the patient continues to have discomfort 6-8 weeks following this injection, they may call schedule an appointment for a possible 2nd injection. The patient was also fitted with a neoprene thumb spica splint to be worn with daytime activities while symptomatic. He understands that we will need to consider a possible left carpal tunnel release sometime after his total hip replacement, when he will no longer require crutches for ambulation. 3. Carpal tunnel syndrome, right Symptoms intermittent, but daily, worse at night Patient would like to proceed with operative treatment and left side 1st Patient is informed that we can discuss operative treatment on the right when he has begun the postoperative period On the left side if he is healing well Patient is amenable to this plan Patient will follow-up as needed with any acute concerns 4. Bilateral cubital tunnel syndrome Asymptomatic Patient denies any numbness in the bilateral small fingers, therefore an any treatment for cubital tunnel syndrome is not necessary at this time Patient is amenable to this plan Coding Level of Care Code Est Pt Level 3 (53139) Diagnoses De Quervain's tenosynovitis, left M65.4 Carpal tunnel syndrome, bilateral G56.03 CPT Codes Fracture Care - Fracture Billing Code: Fracture Billing Code ([id number])
== END 2024-06-30 15:47 | disposition home or self-care (01) ==
PROVIDERS: PCP Internal Medicine; Visit Provider Orthopaedic Surgery
DX: M65.4 Radial styloid tenosynovitis [de Quervain] (principal); G56.03 Carpal tunnel syndrome, bilateral upper limbs
CPT/HCPCS: 20550; 99213

== ENCOUNTER 2024-09-12 | Outpatient (REF) | payer MEDICARE, MEDICAID, SELFPAY ==
--- NOTE | 2024-09-12 | ECG_ITS ---
Test Reason : pre op Blood Pressure : / mmHG Vent. Rate : 072 BPM Atrial Rate : 072 BPM P-R Int : 150 ms QRS Dur : 076 ms QT Int : 368 ms P-R-T Axes : 048 061 051 degrees QTc Int : 402 ms Normal sinus rhythm Normal ECG When compared with ECG of 13-JAN-2017 23:11, Criteria for Anterior infarct are no longer Present Criteria for Anterolateral infarct are no longer Present ST no longer elevated in Inferior leads Nonspecific T wave abnormality no longer evident in Lateral leads Referred By: Addie Martinez Electronically Signed By:ANALY GARNER MD
[2024-09-12 10:22] VITALS: BP 162/77; PULSE 74; RESP 16; O2SAT 99; BMI 29.8
--- NOTE | 2024-09-12 10:48 | P.CONAN_ITS ---
HPI - Anesthesia Eval Consult details Narrative: 59yo M for Right Hip Total Replacement, 10/14/24 No recent illness No CP/SOB with yard work/shoveling CKD: Follows PCP only GERD: Tums prn. Can have severe acid causing vomit. Rec'd ppi 2 weeks daily preop PMFSH Active Problems Active Problems: All Active Problems Avascular necrosis of bone of right hip (Acute) Cubital tunnel syndrome, bilateral (Acute) De Quervain's tenosynovitis, left (Acute) Carpal tunnel syndrome, bilateral (Acute) Abnormality detected on rectal examination of prostate (Acute) Elevated PSA (Acute) Past Medical History Medical History (Updated 09/12/24 @ 10:16 by Roz Maya RN) Back pain Heartburn Inguinal hernia Prophylactic antibiotic CKD (chronic kidney disease) Enlarged prostate Congenital dislocation of left hip Cervical radiculopathy Avascular necrosis Lumbar spinal stenosis Cervical spondylosis Rheumatism Arthritis Other osteonecrosis, left femur HTN (hypertension) Elevated PSA Family History Family History Father CAD (coronary artery disease) Mother Kidney disease Family history of problems with anesthesia: No Surgical History Surgical History (Updated 09/12/24 @ 10:17 by Roz Maya RN) Hx of cervical spine surgery History of carpal tunnel release of both wrists History of surgery History of total hip replacement Hx of laminectomy History of Problems with Anesthesia: No Social History Social History Housing Other:: mobil home Are you a primary career services manager to a significant other at home: No Do you presently have visiting nurse or other home services: No Alcohol intake: current Alcohol intake frequency: a few times a week Patient Tobacco Use Status: Former Tobacco user Tobacco use type: Cigarette Meds Allergies Allergy/AdvReac Type Severity Reaction Status Date / Time spider venom [SPIDER BITES] Allergy Unknown SWELLING Verified 06/30/24 14:54 Home Medications ?Medication ?Instructions ?Recorded ?Confirmed ?Last Taken ?Type losartan 50 mg-hydrochlorothiazide 1 tab PO DAILY 01/03/24 09/12/24 Unknown History 12.5 mg tablet tamsulosin 0.4 mg capsule 0.4 mg PO BEDTIME 01/03/24 09/12/24 Unknown History calcium carbonate (Tums) 200 mg PO BEDTIME PRN Acid Reflux 09/12/24 09/12/24 Unknown History Exam Height,Weight and Vital Signs: Height 5 ft 8 in Weight 88.904 kg Last Vital Signs Pulse 74 09/12/24 10:22 Resp 16 09/12/24 10:22 BP 162/77 H 09/12/24 10:22 Pulse Ox 99 09/12/24 10:22 O2 Del Method Room Air 09/12/24 10:22 Airway Loose/Missing/Broken Teeth: No Heart: RRR Lungs: CTAB Assessment and Plan Assessment Anesthesia Assessment: Anesthesia Plan Discussed and PAT Visit Final Anesthetic Review Family History of Problems with Anesthesia: No History of Problems with Anesthesia: No
[2024-09-12 11:19] LABS: Hematocrit 51.4 % (42.0-52.0); Hemoglobin 16.6 g/dl (14.0-18.0); Mean Corpuscular HGB Conc 32.3 g/dl (31.0-36.0); Mean Corpuscular Hemoglobin 27.3 pg (27.0-33.0); Mean Corpuscular Volume 84.7 fL (80.0-98.0); Mean Platelet Volume 10.2 fL (9.4-12.4); Platelet Count 188 X10*3/uL (160-400); Red Blood Count 6.07 X10*6/uL (4.60-5.80); Red Cell Distribution Width 13.2 % (11.0-16.0); White Blood Count 5.1 X10*3/uL (4.8-10.8)
[2024-09-12 11:53] LABS: Anion Gap 12 (12-20); Blood Urea Nitrogen 33 mg/dL (9-16); Calcium 9.7 mg/dL (8.4-10.2); Carbon Dioxide 29 mmol/L (22-29); Chloride 107 mmol/L (96-108); Estimated Glomerular Filt Rate 51; Glucose Random 103 mg/dL (60-115); Potassium 4.7 mmol/L (3.3-5.1); Sodium 143 mmol/L (135-145)
[2024-09-12 13:11] LABS: MRSA Nasal PCR NEGATIVE (Negative); SA Nasal PCR NEGATIVE (Negative)
== END 2024-09-12 00:01 | disposition home or self-care (01) ==
LOC: HO.PAT
PROVIDERS: Nurse Practitioner; Physician Assistant; Admitting Provider Orthopaedic Surgery; PCP Internal Medicine; Visit Provider Orthopaedic Surgery
DX: Z01.818 Encounter for other preprocedural examination (principal); M87.051 Idiopathic aseptic necrosis of right femur
CPT/HCPCS: 36415; 80048; 85027; 87640; 87641; 93005

== ENCOUNTER → 2024-09-12 11:10 | Outpatient (BNV) | payer MEDICARE, MEDICAID, SELFPAY | PROVIDERS: Admitting Provider Orthopaedic Surgery; PCP Internal Medicine; Visit Provider Internal Medicine Cardiovascular Disease | DX: M87.051 Idiopathic aseptic necrosis of right femur (principal); Z01.810 Encounter for preprocedural cardiovascular examination | CPT/HCPCS: 93010 ==

== ENCOUNTER → 2024-09-26 08:42 | Outpatient (BNVA) | payer MEDICARE, MEDICAID, SELFPAY | PROVIDERS: PCP Internal Medicine | DX: Z01.818 Encounter for other preprocedural examination (principal) ==

== ENCOUNTER → 2024-10-09 09:06 | Outpatient (BNV) | payer MEDICARE, MEDICAID, SELFPAY | PROVIDERS: Visit Provider Radiology Diagnostic Radiology | DX: M25.551 Pain in right hip (principal) | CPT/HCPCS: 73502 ==

== ENCOUNTER 2024-10-09 09:34 | Outpatient (REF) | payer MEDICARE, MEDICAID, SELFPAY ==
--- NOTE | ~2024-10-09 | XR_ITS ---
EXAMINATION: XR HIP, RIGHT CLINICAL INFORMATION: M25.551 - Pain in right hip COMPARISON: None available. TECHNIQUE: AP pelvis, and 2 views of the right hip. FINDINGS: Redemonstration of end-stage arthritic changes right hip joint with mild superior subluxation, subarticular sclerosis and collapse of the femoral head, and subarticular sclerosis and cystic changes in the acetabulum. There is acetabular remodeling. Remainder of the right femur appears intact. Total left hip arthroplasty in place, anatomically aligned, without hardware complication or loosening. No subsidence. Pelvis appears intact without fracture. Degenerative changes bilateral SI joints. Sacral arches are intact. No discrete soft tissue abnormalities. XR/XR hip RT min 2V IMPRESSION: 1. No significant change. End-stage arthropathy right hip joint with subarticular femoral head collapse and sclerosis suggesting AVN. Remodeling of the bony acetabulum with mild superior migration of the femoral head. [id number] appearance. 2. Left hip replacement without complication. Electronically signed by: Derrell Kunz MD 10/09/2024 09:51 AM ROHINI
--- OUTSIDE RECORDS SUMMARY | 2024-10-10 10:10 | XMS_ITS ---
Author Organization [facility] Address [address] [place] [address] Phone Care Team Providers Care Finance Manager Name Role Phone [facility] Unavailable [phone] Plan of Treatment No Plan of Treatment Recorded Assessments Includes: Assessments for all patient encounters No Assessments Recorded Medical Equipment - Implanted Devices Includes: Current and historical Devices No Medical Equipment Recorded Medications Administered Includes: Administered Medications in patient's chart No Administered Medications Recorded Results Includes: Results from 10/10/2023 through 10/10/2024 No Results Recorded For Specified Dates History [...] Dates 1 - Medicare Part B of [place] [id number] ALLA Tinsley 2 - Health Safety Net - [facility] [id number] ALLA Tinsley Clinical Notes Includes: Signed Clinical Notes starting from 08/20/2022 No Clinical Notes Recorded
--- OUTSIDE RECORDS SUMMARY | 2024-10-10 10:10 | XMS_ITS | Clinical Summary ---
Author Organization [facility] Address [address] [place] [address] Phone Care Team Providers Care Convenience Store Clerk Name Role Phone [facility] Unavailable Unavailable Reason for Visit and [...] Dates 1 - Medicare Part B of [place] [id number] ALLA Tinsley 2 - Health Safety Net - [facility] [id number] ALLA Tinsley Clinical Notes Includes: Clinical Notes from this encounter No Clinical Notes Recorded
--- OUTSIDE RECORDS SUMMARY | 2024-10-10 10:10 | XMS_ITS ---
Care Plan - [facility] Created on: October 10, 2024 ALLA MILLS : 1965 Sex: Male Author Organization [facility] Address [address] [place] [address] Phone Care Team Providers Care Conduit Helper Name Role Phone [facility] Unavailable Unavailable
--- OUTSIDE RECORDS SUMMARY | 2024-10-10 10:10 | XMS_ITS | Clinical Summary ---
Author Organization [facility] Address [address] [place] [address] Phone Care Team Providers Care Cloth Doffer Name Role Phone [facility] Unavailable Unavailable Reason for Visit and Chief [...] leroy Dates 1 - Medicare Part B [facility] [id number] ALLA Tinsley 2 - Health Safety Net - [facility] [id number] ALLA Tinsley Clinical Notes Includes: Clinical Notes from this encounter No Clinical Notes Recorded
--- OUTSIDE RECORDS SUMMARY | 2024-10-10 10:11 | XMS_ITS | Clinical Summary ---
Author Organization [facility] Address [address] [place] [address] Phone Care Team Providers Care Contracting Manager Name Role Phone [facility] Unavailable Unavailable Reason for Visit and Chief Complaint Post Op Visit/Follow Up Plan of Treatment Pending Tests Order Diagnosis Results Due Ordering P rovider Follow Up - Appointment 3 weeks Cutaneou s abscess of right upper limb 06/08/22 Bailee Tamayo PA-C Last Documented On 10:43AM ; [facility] Assessments Includes: Assessments from this encounter [...] Last Documented: On 06/08/2022 10:22A M ; [facility] Results Includes: Results discussed during this encounter [...] Post Op Visit/Follow Up Bailee Tamayo PA-C MD [facility] 06/08/20 22 9:20AM 10:36AM Insurance Includes: Active Insurance Policies Plan Name Member ID Group # Subscriber Relationship Effect leroy Dates 1 - Medicare Part B [facility] [id number] ALLA Tinsley 2 - Health Safety [facility] [id number] ALLA Tinsley Clinical Notes Includes: Clinical Notes from this encounter No Clinical Notes Recorded
== END 2024-10-09 09:35 | disposition home or self-care (01) ==
LOC: HO.HOSX 09:34
PROVIDERS: Visit Provider Physician Assistant
DX: M87.051 Idiopathic aseptic necrosis of right femur (principal); M25.551 Pain in right hip
CPT/HCPCS: 73502; 99212

== ENCOUNTER 2025-02-09 13:41 | Outpatient (AMB) | payer MEDICARE, MEDICAID, SELFPAY ==
[2025-02-09 13:45] VITALS: BMI 28.6
--- NOTE | 2025-02-09 13:45 | A.OFFVIS_ITS ---
Vital Signs 02/09/25 13:45 Height 5 ft 8 in Weight 188 lb BMI 28.6 Intake Visit Reasons: OV- R hip pain, Discuss R ETIENNE Intake Note: Nikhil is a 60 year old male who presents today for a follow up of his Right Hip OA. He was previously booked for a RT ETIENNE 10/14/24 but surgery was cancelled due to non compliance as he did not complete his Preoperative Type & Screen or Urine Tox Screen. Today he would like to re-discuss Right TKA. Allergies No Known Allergies Allergy (Verified 02/09/25 13:50) HPI HPI OV- R hip pain, Discuss R ETIENNE: Details: Nikhil is a 60 year old male who presents today for a follow up of his Right Hip OA. He was previously booked for a RT ETIENNE 10/14/24 but surgery was cancelled due to non compliance as he did not complete his Preoperative Type & Screen or Urine Tox Screen. Today he would like to re-discuss Right ETIENNE. He continues to describe severe right hip pain. He uses crutches and can barely ambulate. He is desperate to have his hip replacement performed. He states he has been having some issues with his living situation in his trying to resolve that. He has a history of IVDU but has not used in over 5 years. [facility] Medical History (Updated 09/12/24 @ 10:16 by Roz Maya RN) Back pain Heartburn Inguinal hernia Prophylactic antibiotic CKD (chronic kidney disease) Enlarged prostate Congenital dislocation of left hip Cervical radiculopathy Avascular necrosis Lumbar spinal stenosis Cervical spondylosis Rheumatism Arthritis Other osteonecrosis, left femur HTN (hypertension) Elevated PSA Surgical History Hx of cervical spine surgery History of carpal tunnel release of both wrists History of surgery History of total hip replacement Hx of laminectomy Family History Father CAD (coronary artery disease) Mother Kidney disease Social History Housing Other:: mobil home Are you a primary career development coordinator/teacher to a significant other at home: No Do you presently have visiting nurse or other home services: No Alcohol intake: current Alcohol intake frequency: a few times a week Patient Tobacco Use Status: Former Tobacco user Tobacco use type: Cigarette Physical Exam Vital Signs: BMI result Body Mass Index 28.6 Extrem Other: Severe restriction right hip range of motion with severe gait antalgia. Results Reviewed Results Reviewed: I personally reviewed relevant radiographs. Right hip severe OA with femoral head destruction Assessment & Plan Assessment & Plan (1) Avascular necrosis of bone of right hip: Code(s): M87.051 - Idiopathic aseptic necrosis of right femur Category: Medical Plan: This is a 60-year-old avascular necrosis of the right hip with severe OA. He does need a hip replacement. He missed his appointments and was hesitant to do a tox screen. At this point in the time in order to proceed forward we need to make sure he has Stable housing. He states this is easily resolve but I would not operate until it is fully resolved and he has a home to return to. He states he is not homeless he just trying to resolve his mobile home. We will need to get tox screens and get clearance by his PCP. I will see him back in 2 months. Coding Level of Care Code Est Pt Level 4 (68686) Diagnoses Avascular necrosis of bone of right hip M87.051
--- OUTSIDE RECORDS SUMMARY | 2025-02-09 14:54 | XMS_ITS | Clinical Summary ---
Author Organization Patient Business [facility] Address [address] [place] [address] Care Team Providers Care Guard Lieutenant Name Role Phone Kristyn Ramírez MD Primary Care Provider [phone] Social History Tobacco Use Types Packs/Day Years Used Date Smoking Tobacco: Every Day Smokeless Tobacco: Never Sex and Gender Information Value Date Recorded Sex Assigned at Not on file Legal Sex Male 4:02 PM EDT Gender Identity Not on file Sexual Orientation Not on file Obstetrics History Last Filed Vital Signs Vital Sign Reading Time Taken Comments Blood Pressure 178/96 06/05/2022 1:45 PM EDT Pulse 68 06/05/2022 1:45 PM EDT Temperature - - Respiratory Rate - - Oxygen Saturation - - Inhaled Oxygen Concentration - - Weight 84.7 kg (186 lb 12.8 oz) 01/31/2024 3:05 PM EDT Height 172.7 cm (5' 8 ) 01/31/2024 3:05 PM EDT Body Mass Index 28.4 01/31/2024 3:05 PM EDT Plan of Treatment Health Maintenance Due Date Last Done Comments Hepatitis A Vaccines (1 of 2 - Risk 2-dose series) 1985 Hepatitis B Vaccines (1 of 3 - 19+ 3-dose series) 1985 Pneumococcal Vaccine: 50+ Years (1 of 2 - PCV) 1985 Pneumococcal Vaccine: Pediatrics (0 to 5 Years) and At-Risk Patients (6 to 64 Years) (1 of 2 - PCV) 1985 Zoster Vaccines (1 of 2) 01/11/2016 Cholesterol Screening (Lipid Panel) 04/14/2022 Colorectal Cancer Screening: Colonoscopy 04/14/2022 Depression Screening 04/14/2022 HIV Screening 04/14/2022 Hepatitis C Screening 04/14/2022 Social Influencers of Health Screening 04/14/2022 COVID-19 Vaccine (1 - 2023-2 5 season) 2024 Influenza Vaccine (Season Ended) 2025 06/05/2022, 06/11/2020 DTaP,Tdap,and Td Vaccines (2 - Td or Tdap) 12/28/2030 12/28/2020 RSV Immunization Adult Patients (1 - 1-dose 75+ series) 2041 HIB Vaccines Aged Out No longer eligi ble based on patient's age to complete this topic HPV Vaccines Aged Out No longer eligi ble based on patient's age to complete this topic IPV Vaccines Aged Out No longer eligi ble based on patient's age to complete this topic MMR Vaccines Aged Out No longer eligi ble based on patient's age to complete this topic Meningococcal ACWY Vaccine Aged Out N o longer eligible based on patient's age to complete this topic Meningococcal B Vaccine Aged Out No l onger eligible based on patient's age to complete this topic RSV Immunization Patients Under 20 months Aged Out No longer eligible b ased on patient's age to complete this topic Varicella Vaccines Aged Out No longer eligible based on patient's age to complete this topic Advance Directives Documents on File Type Date Recorded Patient Tire Care Manager Expl anation Health Care Decision (hx) 02/21/2024 HE ALTH CARE PROXY Health Care Decision (hx) 05/10/2022 AD JORDAN DIRECTIVE Health Care Decision (hx) 05/10/2022 AD JORDAN DIRECTIVE Health Care Decision (hx) 05/10/2022 AD JORDAN DIRECTIVE Care Teams Guard Lieutenant Relationship Specialty Start Date End Date Kristyn Ramírez MD [address] [place] [address] Dr Samuels, JENNY [address] PCP - General 12/25/23
== END 2025-02-09 14:36 | disposition home or self-care (01) ==
LOC: HO.HOS 13:42
PROVIDERS: Visit Provider Orthopaedic Surgery
DX: M87.051 Idiopathic aseptic necrosis of right femur (principal)
CPT/HCPCS: 99214

== ENCOUNTER → 2025-02-09 13:41 | Outpatient (BNVA) | payer MEDICARE, MEDICAID, SELFPAY | PROVIDERS: Visit Provider Orthopaedic Surgery | DX: M16.11 Unilateral primary osteoarthritis, right hip (principal); M87.051 Idiopathic aseptic necrosis of right femur | CPT/HCPCS: 99212 ==

== ENCOUNTER 2025-04-13 13:35 | Outpatient (AMB) | payer MEDICARE, MEDICAID, SELFPAY ==
--- NOTE | 2025-04-13 13:36 | MHC.OFFVIS ---
Intake Visit Reasons: OV - Check In - Booked [facility] 06/23/25 Intake Note: Nikhil is a 60 year old male who presents today for a follow up of his Right Hip OA. He was previously booked for a RT ETIENNE 10/14/24 but surgery was cancelled due to non compliance as he did not complete his Preoperative Type & Screen or Urine Tox Screen. Today we are checking in on housing status. Allergies No Known Allergies Allergy (Verified 04/13/25 13:37) HPI HPI OV - Check In - Booked [facility] 06/23/25: Details: Nikhil is a 60 year old male who presents today for a follow up of his Right Hip OA. He was previously booked for a RT ETIENNE 10/14/24 but surgery was cancelled due to non compliance as he did not complete his Preoperative Type & Screen or Urine Tox Screen. Today we are checking in on housing status. He states that he does have a place to live. He continues to be in severe pain on his right hip. He can not ambulate. He is continuing to try to work to make a living. He states he is not using any illicit drugs and has not for least 6 months. He has a scheduled appointment with the primary care doctor. [facility] Medical History (Updated 09/12/24 @ 10:16 by Roz Maya RN) Back pain Heartburn Inguinal hernia Prophylactic antibiotic CKD (chronic kidney disease) Enlarged prostate Congenital dislocation of left hip Cervical radiculopathy Avascular necrosis Lumbar spinal stenosis Cervical spondylosis Rheumatism Arthritis Other osteonecrosis, left femur HTN (hypertension) Elevated PSA Surgical History Hx of cervical spine surgery History of carpal tunnel release of both wrists History of surgery History of total hip replacement Hx of laminectomy Family History Father CAD (coronary artery disease) Mother Kidney disease Social History Housing Other:: mobil home Are you a primary transition of care specialist to a significant other at home: No Do you presently have visiting nurse or other home services: No Alcohol intake: current Alcohol intake frequency: a few times a week Patient Tobacco Use Status: Former Tobacco user Tobacco use type: Cigarette Physical Exam Extrem Other: Severe restriction right hip range of motion with severe gait antalgia. Assessment & Plan Assessment & Plan (1) Avascular necrosis of bone of right hip: Code(s): M87.051 - Idiopathic aseptic necrosis of right femur Category: Medical Plan: This is 60-year-old with severe right hip arthritis secondary to avascular necrosis. There is proximal migration loss of motion he has extremely limited ambulatory capacity. He states he has not been using and stopped smoking. When he does use it has been occasional and intermittent and never IV. He states it is been controlled and he is aware that he needs to stop doing this permanently. He has a stable house or so he states and I would like to get a full set of labs and EKG and U tox. We will see him back for his nurse navigation appointment and move forward cautiously. Coding Level of Care Code Est Pt Level 3 (68118) Diagnoses Avascular necrosis of bone of right hip M87.051
--- OUTSIDE RECORDS SUMMARY | 2025-04-13 13:47 | XMS_ITS | Clinical Summary ---
Author Organization [facility] Address [address] [place] [address] Care Team Providers Care Automatic Outsole Cutter Name Role Phone Leonardo Borden MD Primary Care Provider [phone] Social History Tobacco Use Types Packs/Day Years Used Date Smoking Tobacco: Never Assessed Sex and Gender Information Value Date Recorded Sex Assigned at Not on file Legal Sex Male 1:01 AM EDT Gender Identity Not on file Sexual Orientation Not on file Plan of Treatment Health Maintenance Due Date Last Done Comments Hepatitis C Screening 1965 DTaP/Tdap/Td (1 - Tdap) 01/11/1984 Hep B (1 of 3 - 19+ 3-dose series) 1985 Pneumococcal 50+ years (1 of 1 - PCV) 01/11/2016 Zoster (Shingrix) (1 of 2) 01/11/2016 COVID-19 Vaccine (2023-2 5 season) 2024 Influenza (#1) 2025 HPV Vaccine (No Doses Required) Completed Hep A Aged Out No longer eligi ble based on patient's age to complete this topic Hib Aged Out No longer eligi ble based on patient's age to complete this topic Meningococcal ACWY Aged Out No longer eligible based on patient's age to complete this topic Insurance MEDICAID Care Teams Automatic Outsole Cutter Relationship Specialty Start Date End Date Leonardo Borden MD [facility] [place] [address] [facility] [place] [address] PCP - General 11/15/09
--- OUTSIDE RECORDS SUMMARY | 2025-04-13 13:47 | XMS_ITS | Clinical Summary ---
Author Organization Patient Business Ser [facility] Address [address] [place] [address] Care Team Providers Care Informatics Scientist Name Role Phone Kristyn Ramírez MD Primary Care Provider [phone] Social History Tobacco Use Types Packs/Day Years [...] Years (1 of 2 - PCV) 1985 Zoster Vaccines (1 of 2) 01/11/2016 Cholesterol Screening (Lipid Panel) 04/14/2022 Colorectal Cancer Screening: Colonoscopy 04/14/2022 HIV Screening 04/14/2022 Hepatitis C Screening 04/14/2022 Social Influencers of Health Screening 04/14/2022 COVID-19 Vaccine (1 - 2023-2 5 season) 2024 Depression Screening 09/10/2024 Influenza Vaccine (#1) 2025 2, 06/11/2020 DTaP,Tdap,and Td Vaccines (2 - Td [...] Documents on File Type Date 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
== END 2025-04-13 13:59 | disposition home or self-care (01) ==
LOC: HO.HOS 13:35
PROVIDERS: Visit Provider Orthopaedic Surgery
DX: M87.051 Idiopathic aseptic necrosis of right femur (principal)
CPT/HCPCS: 99213

== ENCOUNTER → 2025-04-13 13:35 | Outpatient (BNVA) | payer MEDICARE, MEDICAID, SELFPAY | PROVIDERS: Visit Provider Orthopaedic Surgery | DX: M87.051 Idiopathic aseptic necrosis of right femur (principal) | CPT/HCPCS: 99212 ==

== ENCOUNTER 2025-05-25 | Outpatient (REF) | payer MEDICARE, MEDICAID, SELFPAY ==
--- NOTE | 2025-05-25 | ECG_ITS ---
Test Reason : PRE OP Blood Pressure : */* mmHG Vent. Rate : 58 BPM Atrial Rate : 58 BPM P-R Int : 158 ms QRS Dur : 86 ms QT Int : 406 ms P-R-T Axes : 39 55 47 degrees QTcB Int : 398 ms Sinus bradycardia Otherwise normal ECG When compared with ECG of 12-Sep-2024 11:10, No significant change was found Referred By: Addie Martinez Electronically Signed By: IBIS MOTA
--- OUTSIDE RECORDS SUMMARY | 2025-05-25 09:23 | XMS_ITS | Clinical Summary ---
Author Organization [facility] Address [address] [place] [address] Care Team Providers Care International Guest Coordinator Name Role Phone Leonardo Borden MD Primary Care Provider [phone] Social History Tobacco Use Types Packs/Day Years [...] 2) 01/11/2016 COVID-19 Vaccine (2023-2 5 season) 2025 Influenza (#1) 2025 HPV Vaccine (No Doses Required) Completed Hep A Aged Out No longer eligi ble based on patient's age to complete this topic Hib Aged Out No longer eligi ble based on patient's age to complete this topic Meningococcal ACWY Aged Out No longer eligible based on patient's age to complete this topic Insurance MEDICAID Care Teams International Guest Coordinator Relationship Specialty Start Date End Date Leonardo Borden MD [facility] [place] [address] [facility] [address] PCP - General 11/15/09
--- OUTSIDE RECORDS SUMMARY | 2025-05-25 09:23 | XMS_ITS | Clinical Summary ---
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
[2025-05-25 10:16] VITALS: BP 119/63; PULSE 65; RESP 20; O2SAT 99
--- NOTE | 2025-05-25 10:24 | HO.ANESPROP2 ---
HPI - Anesthesia Eval Consult details Narrative: Deemed Not a surgical candidate by ortho service 60yo M Right Hip Total Replacement, 06/23/25 No recent illness No CP/SOB with very limited activity d/t hip pain PMFSH Active Problems Active Problems: All Active Problems Avascular necrosis of bone of right hip (Acute) Cubital tunnel syndrome, bilateral (Acute) De Quervain's tenosynovitis, left (Acute) Carpal tunnel syndrome, bilateral (Acute) Abnormality detected on rectal examination of prostate (Acute) Elevated PSA (Acute) Past Medical History Medical History (Updated 05/25/25 @ 10:12 by Cande Coates RN) Back pain Heartburn Inguinal hernia Prophylactic antibiotic CKD (chronic kidney disease) Enlarged prostate Cervical radiculopathy Avascular necrosis Lumbar spinal stenosis Cervical spondylosis Rheumatism Arthritis HTN (hypertension) Elevated PSA Family History Family History Father CAD (coronary artery disease) Mother Kidney disease Family history of problems with anesthesia: No Surgical History Surgical History (Updated 05/25/25 @ 10:11 by Cande Coates RN) Hx of cervical spine surgery History of carpal tunnel release of both wrists History of surgery History of total hip replacement Hx of laminectomy History of Problems with Anesthesia: No Social History Social History Household Members Other:: roommate Housing Other:: mobil home Are you a primary child care to a significant other at home: No Do you presently have visiting nurse or other home services: No Alcohol intake: current Alcohol intake frequency: a few times a week Patient Tobacco Use Status: Current everyday Tobacco user Tobacco use type: Cigarette Cigarettes Per Day: 10 Years Smoked: 33 Use of substances other than those prescribed or required for medical reasons: No Substance Use Type Other:: 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 If so, by whom?: No Spiritual Healthcare Practices: no Roman Catholic Healthcare Practices: no Cultural Healthcare Practices: no Are you DNR?: No Advance Directives on File: No Poor oral hygiene: No Meds Allergies Allergy/AdvReac Type Severity Reaction Status Date / Time No Known Allergies Allergy Verified 05/25/25 09:00 Home Medications ?Medication ?Instructions ?Recorded ?Confirmed ?Last Taken ?Type tamsulosin 0.4 mg capsule 0.4 mg PO QAM 01/03/24 05/25/25 Unknown History calcium carbonate (Tums) 200 mg PO BEDTIME PRN Acid Reflux 09/12/24 05/25/25 Unknown History losartan 50 mg tablet 50 mg PO QAM 05/25/25 05/25/25 Unknown History naproxen sodium 220 mg tablet 220 mg PO BID PRN hip pain 05/25/25 05/25/25 Unknown History (Aleve) Exam Height,Weight and Vital Signs: Height 5 ft 8 in Weight 89.5 kg Last Vital Signs Pulse 65 05/25/25 10:16 Resp 20 05/25/25 10:16 BP 119/63 05/25/25 10:16 Pulse Ox 99 05/25/25 10:16 O2 Del Method Room Air 05/25/25 10:16 Pertinent Lab Results Pertinent Lab Results: Lab Results 05/25/25 05/25/25 05/25/25 Range/Units 10:45 11:01 11:04 WBC 4.5 L (4.8-10.8) X10*3/uL RBC 5.36 (4.60-5.80) X10*6/uL Hgb 14.8 (14.0-18.0) g/dl Hct 45.5 (42.0-52.0) % MCV 84.9 (80.0-98.0) fL MCH 27.6 (27.0-33.0) pg MCHC 32.5 (31.0-36.0) g/dl RDW 13.0 (11.0-16.0) % Plt Count 195 (160-400) X10*3/uL MPV 10.4 (9.4-12.4) fL Absolute Nucleated RBC 0.000 (0.0-0.012) X10*3/uL Nucleated RBC % (auto) 0.0 (0.0-0.2) /100WBC Sodium 141 (135-145) mmol/L Potassium 4.7 (3.3-5.1) mmol/L Chloride 106 (96-108) mmol/L Carbon Dioxide 29 (22-29) mmol/L Anion Gap 11 L (12-20) BUN 24 H (9-16) mg/dL Creatinine 1.37 (0.5-1.4) mg/dL Estim Creat Clear Calc 63.0 Estimated GFR 53 Random Glucose 82 (60-115) mg/dL Calcium 9.2 (8.4-10.2) mg/dL Nasal Screen MRSA (PCR) NEGATIVE (Negative) Nasal S. aureus Screen NEGATIVE (Negative) Nasal MRSA/S.aureus Interp SEE NOTE Urine Opiates Screen Not Detected (Not Detect) Ur Buprenorphine Scrn Not Detected (Not Detect) ng/mL Ur Oxycodone Screen Not Detected (Not Detect) ng/mL Urine Methadone Screen Not Detected (Not Detect) ng/mL Urine Fentanyl Screen Not Detected (Not Detect) Ur Barbiturates Screen Not Detected (Not Detect) Ur Phencyclidine Scrn Not Detected (Not Detect) Ur Amphetamines Screen Not Detected (Not Detect) U Benzodiazepines Scrn Not Detected (Not Detect) Urine Cocaine Screen POSITIVE H (Not Detect) U Marijuana (THC) Screen Not Detected (Not Detect) Airway Mallampati Class: III TM Dist: >3cm Neck ROM: Full Loose/Missing/Broken Teeth: No Heart: RRR Lungs: CTAB Assessment and Plan Assessment Anesthesia Assessment: Anesthesia Plan Discussed, Smoking Cess. Discussed and PAT Visit Final Anesthetic Review Family History of Problems with Anesthesia: No History of Problems with Anesthesia: No
[2025-05-25 11:14] LABS: Hematocrit 45.5 % (42.0-52.0); Hemoglobin 14.8 g/dl (14.0-18.0); Mean Corpuscular HGB Conc 32.5 g/dl (31.0-36.0); Mean Corpuscular Hemoglobin 27.6 pg (27.0-33.0); Mean Corpuscular Volume 84.9 fL (80.0-98.0); NRBC Abs Auto 0.000 X10*3/uL (0.0-0.012); NRBC Pct Auto 0.0 /100WBC (0.0-0.2); Platelet Count 195 X10*3/uL (160-400); Red Blood Count 5.36 X10*6/uL (4.60-5.80); White Blood Count 4.5 X10*3/uL (4.8-10.8)
[2025-05-25 12:04] LABS: Potassium 4.7 mmol/L (3.3-5.1); Sodium 141 mmol/L (135-145)
[2025-05-25 12:05] LABS: Anion Gap 11 (12-20); Blood Urea Nitrogen 24 mg/dL (9-16); Calcium 9.2 mg/dL (8.4-10.2); Carbon Dioxide 29 mmol/L (22-29); Chloride 106 mmol/L (96-108); Creatinine Clr Calc Pharmacy 63.0; Estimated Glomerular Filt Rate 53
[2025-05-25 12:46] LABS: Cannabinoid Screen Urine Not Detected (Not Detect)
[2025-05-25 14:05] LABS: MRSA Nasal PCR NEGATIVE (Negative); SA Nasal PCR NEGATIVE (Negative)
== END 2025-05-25 00:01 | disposition home or self-care (01) ==
LOC: HO.PAT
PROVIDERS: Nurse Practitioner; Physician Assistant; PCP Internal Medicine; Visit Provider Orthopaedic Surgery
DX: Z01.812 Encounter for preprocedural laboratory examination (principal); Z01.810 Encounter for preprocedural cardiovascular examination; M87.051 Idiopathic aseptic necrosis of right femur; Z51.81 Encounter for therapeutic drug level monitoring; I12.9 Hypertensive chronic kidney disease with stage 1 through stage 4 chronic kidney disease, or unspecified chronic kidney disease; N18.9 Chronic kidney disease, unspecified
CPT/HCPCS: 36415; 80048; 80307; 85027; 87640; 87641; 93005

== ENCOUNTER 2025-05-25 08:33 | Outpatient (REF) | payer MEDICARE, MEDICAID, SELFPAY | END 2025-05-25 08:34 | disposition home or self-care (01) | LOC: HO.LAB 08:33 | PROVIDERS: Absent Provider Internal Medicine; PCP Internal Medicine | DX: Z13.89 Encounter for screening for other disorder (principal) ==

== ENCOUNTER → 2025-05-25 10:53 | Outpatient (BNV) | payer MEDICARE, MEDICAID, SELFPAY | PROVIDERS: PCP Internal Medicine; Visit Provider Internal Medicine | DX: R00.1 Bradycardia, unspecified (principal) | CPT/HCPCS: 93010 ==

== ENCOUNTER 2025-07-06 11:46 | Outpatient (REF) | payer MEDICARE, MEDICAID, SELFPAY ==
[2025-07-06 13:25] LABS: MANUAL DIFF FLAG NO
[2025-07-06 13:29] LABS: Alanine Aminotransferase 26 U/L (0-40); Albumin Level 4.2 g/dL (3.5-5.0); Alkaline Phosphatase 74 U/L (39-117); Anion Gap 13 (12-20); Aspartate Amino Transferase 39 U/L (5-37); Blood Urea Nitrogen 21 mg/dL (9-16); Calcium 8.7 mg/dL (8.4-10.2); Carbon Dioxide 25 mmol/L (22-29); Chloride 111 mmol/L (96-108); Cholesterol 161 mg/dL (<200); Estimated Glomerular Filt Rate > 60; HDL Cholesterol 64 mg/dL (>40); Potassium 4.1 mmol/L (3.3-5.1); Sodium 145 mmol/L (135-145); Total Protein 7.4 g/dL (6.5-8.0); Triglycerides 148 mg/dL (<150)
[2025-07-06 13:31] LABS: Hematocrit 46.7 % (42.0-52.0); Hemoglobin 14.7 g/dl (14.0-18.0); Imm Gran Abs Auto 0.01 X10*3/uL (0.00-0.03); Imm Gran Pct Auto 0.2 % (0.0-0.4); Lymphocytes Absolute Auto 1.0 X10*3/uL (1.2-4.9); Mean Corpuscular HGB Conc 31.5 g/dl (31.0-36.0); Mean Corpuscular Hemoglobin 27.2 pg (27.0-33.0); Mean Corpuscular Volume 86.3 fL (80.0-98.0); NRBC Abs Auto 0.050 X10*3/uL (0.0-0.012); Platelet Count 217 X10*3/uL (160-400); Red Blood Count 5.41 X10*6/uL (4.60-5.80); White Blood Count 4.9 X10*3/uL (4.8-10.8)
[2025-07-06 13:33] LABS: NRBC Pct Auto 1.0 /100WBC (0.0-0.2)
[2025-07-06 13:49] LABS: Prostate Specific Antigen 8.73 ng/mL (<0.05-4.0)
--- OUTSIDE RECORDS SUMMARY | 2025-07-06 15:13 | XMS_ITS | Encounter Summary ---
Author Organization [facility] Address [address] [place] [address] Care Team Providers Care Process Checker Name Role Phone Leonardo Borden MD Primary Care Provider [phone] Reason for Visit * Reason Comments Surgery Encounter Details Date Type Department Care Team ([facility] st Contact Info) Description 07/02/2025 Telephone [facility] Orthopedic Surgery [address] [place] [phone] Chance Cosby MD [address] [place] [address] [phone] Surgery Social History Tobacco Use Types Packs/Day Years Used Date Smoking Tobacco: Never Assessed Sex and Gender Information Value Date Recorded Sex Assigned at Not on file Legal Sex Male 1:01 AM EDT Gender Identity Not on file Sexual Orientation Not on file documented as of this encounter Miscellaneous Notes * Telephone Encounter - Patti Wilson - 07/06/2025 2:39 PM EDT Patient has been scheduled for Surgery: Future Appointments Date Time Provider Department Phone 09/29/25 10:30 AM Kathie Jack PA [facility] Pre-Admission Testing [address] [place] [address] 10/28/25 12:00 PM Chance Cosby MD [facility]-Orthopedic [phone] 11/26/25 11:00 AM Chance Cosby MD [facility] Orthopedic Surgery Suite [facility] [phone] Patient states they have not had Physical Therapy in the last 12 months. * Telephone Encounter - Ольга Chavez - 07/02/2025 4:47 PM EDT Patient requesting a call back to schedule sx documented in this encounter Plan of Treatment Upcoming Encounters Date Type Department Care Team ([facility] st Contact Info) Description 09/29/2025 10:30 AM EST Office Visit [facility] Pre-Admission Testing [address] [place] 123 [facility] [address] [place] [address] Kathie Jack PA 123 [facility] 590 [place] [address] PRE OP RIGHT HIP REPLACEMENT [facility] 10/28/2025 10/28/2025 12:00 PM EST Office Visit [facility]opedic [address] [place] [address] Chance Cosby MD [address] [place] [address] RIGHT HIP REPLACEMENT [facility] 10/28/2025 11/26/2025 11:00 AM EDT Office Visit [facility] Orthopedic Surgery [address] [address] Chance Cosby MD [address] [place] [address] S/P RIGHT HIP REPLACEMENT [facility] 10/28/2025 documented as of this encounter Visit Diagnoses Not on filedocumented in this encounter Care Teams Process Checker Relationship Specialty Start Date End Date Leonardo Borden MD [facility] [place] [address] [place] [address] PCP - General 11/15/09 documented as of this encounter
--- OUTSIDE RECORDS SUMMARY | 2025-07-06 15:13 | XMS_ITS | Encounter Summary ---
Author Organization [facility] Address [address] [place] [address] Care Team Providers Care Roll Mechanic Name Role Phone Leonardo Borden MD Primary Care Provider [phone] Reason for Referral * Physical Therapy (Elective) - New Request Specialty Diagnoses / Procedures Referred By Contact Referred To Contact Rehabilitation / Physical Therapy Diagnoses Primary osteoarthritis of right hip Lumbar spondylosis Chance Cosby MD [address] [place] [address] Phone: tel:[phone] fax:[phone] Referral ID Status Reason Start Date Expiration Date Visits Requested Visits Authorized [id number] New Request Patient Preference 5 1 1 Question Answer Reason for referral and relevant patient history/tests: EVALUATE AND TREAT Track Order? No tracking Is this work conditioning? No Is this related to a recent/upcoming surgery? Yes Specialist needs expertise in Musculoskeletal issue Encounter Details Date Type Department Care Team (Late Contact Info) Description 07/06/2025 Orders Only [facility] [address] [place] [phone] Chance Cosby MD [address] [place] [address] Social History Tobacco Use Types Packs/Day Years Used Date Smoking Tobacco: Never Assessed Sex and Gender Information Value Date Recorded Sex Assigned at Not on file Legal Sex Male 1:01 AM EDT Gender Identity Not on file Sexual Orientation Not on file documented as of this encounter Plan of Treatment Upcoming Encounters Date Type Department Care Team (Late Contact Info) Description 09/29/2025 10:30 AM EST Office Visit [facility] Pre-Admission Testing [address] [place] 123 [facility] [address] [place] [address] Kathie Jack PA 123 [facility] [address] [place] [address] PRE OP RIGHT HIP REPLACEMENT [facility] 10/28/2025 10/28/2025 12:00 PM EST Office Visit [facility]Or[facility] [address] [place] [address] Chance Cosby MD [address] [place] [address] RIGHT HIP REPLACEMENT [facility] 10/28/2025 11/26/2025 11:00 AM EDT Office Visit [facility] Orthopedic Surgery [address] [address] Chance Cosby MD [address] [place] [address] S/P RIGHT HIP REPLACEMENT [facility] 10/28/2025 Scheduled Referrals Name Type Priority Associated Diagnoses Orde r Schedule CONSULT PHYSICAL THERAPY Referral Other (specify time in comments) Primary osteoarthritis of right hip Lumbar spondylosis Ordered: 07/06/2025 documented as of this encounter Visit Diagnoses Diagnosis Primary osteoarthritis of right hip- Primary Primary localized osteoarthrosis, pelvic region and thigh Lumbar spondylosis Lumbosacral spondylosis without myelopathy documented in this encounter Care Teams Roll Mechanic Relationship Specialty Start Date End Date Leonardo Borden MD [facility] [place] [address] [place] [address] PCP - General 11/15/09 documented as of this encounter
--- OUTSIDE RECORDS SUMMARY | 2025-07-06 15:13 | XMS_ITS | Encounter Summary ---
Author Organization [facility] Address [address] [place] [address] Care Team Providers Care Fish Net Maker Name Role Phone Leonardo Borden MD Primary Care Provider [phone] Reason for Visit * Reason Comments Physical Therapy Encounter Details Date Type Department Care Team ([facility] Contact Info) Description 07/06/2025 Telephone [facility] 123 [facility] [address] [place] [address] Chance Cosby MD [address] [place] [address] Physical Therapy Social History Tobacco Use Types Packs/Day Years Used Date Smoking Tobacco: Never Assessed Sex and Gender Information Value Date Recorded Sex Assigned at Not on file Legal Sex Male 1:01 AM EDT Gender Identity Not on file Sexual Orientation Not on file documented as of this encounter Miscellaneous Notes * Telephone Encounter - Patti Wilson - 07/06/2025 2:37 PM EDT Nikhil is scheduled for surgery on 10/28/2025. They will need pt starting 7 days after surgery. They would like to go to Location (Name & Address): [facility] [address] [address] Fx: N/A documented in this encounter Plan of Treatment Upcoming Encounters Date Type Department Care Team (Late Contact Info) Description 09/29/2025 10:30 AM EST Office Visit [facility] Pre-Admission Testing [address] [place] [address] Kathie Jack PA 123 [facility] 590 [place] [address] PRE OP RIGHT HIP REPLACEMENT [facility] 10/28/2025 10/28/2025 12:00 PM EST Office Visit [facility]Or[facility]opedic [address] [place] [address] Chance Cosby MD [address] [place] [address] RIGHT HIP REPLACEMENT [facility] 10/28/2025 11/26/2025 11:00 AM EDT Office Visit [facility] Orthopedic Surgery [address] 123 [facility] 320 [place] [address] Chance Cosby MD [address] [place] [address] S/P RIGHT HIP REPLACEMENT [facility] 10/28/2025 documented as of this encounter Visit Diagnoses Not on filedocumented in this encounter Care Teams Fish Net Maker Relationship Specialty Start Date End Date Leonardo Borden MD [facility] [place] [address] [place] [address] PCP - General 11/15/09 documented as of this encounter
--- OUTSIDE RECORDS SUMMARY | 2025-07-06 15:13 | XMS_ITS | Clinical Summary ---
Author Organization Patient Business Ser [facility] Address [address] [place] [address] Care Team Providers Care Paralegal Internship Name Role Phone Kristyn Ramírez MD Primary Care Provider [phone] Social History Tobacco Use Types Packs/Day Years [...] Health Maintenance Due Date Last Done Comments Colorectal Cancer Screening: Colonoscopy 1966 Hepatitis A Vaccines (1 of 2 - Risk 2-dose series) 1985 Hepatitis B Vaccines (1 of 3 - 19+ 3-dose series) 1985 Pneumococcal Vaccine: 50+ Years (1 of 2 - PCV) 1985 Zoster Vaccines (1 of 2) 01/11/2016 Cholesterol Screening (Lipid Panel) 04/14/2022 HIV Screening 04/14/2022 Hepatitis C Screening [...] Documents on File Type Date 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
--- OUTSIDE RECORDS SUMMARY | 2025-07-06 15:13 | XMS_ITS | Clinical Summary ---
Author Organization [facility] Address [address] [place] [address] Care Team Providers Care Customer Service Receptionist Name Role Phone Leonardo Borden MD Primary Care Provider [phone] Allergies No known active allergies Medications Losartan Potassium (COZAAR) 50 MG tablet Take 1 tablet by mouth 1 (one) time each day. 03/20/2025 Active Tamsulosin HCl (FLOMAX) 0.4 MG Cap 06/14/2025 Active Encounters Date Type Department Care Team Description 07/06/2025 Telephone [facility] [address] [phone] Chance Cosby MD Physical Therapy 07/06/2025 Orders Only [facility] [address] [place] [phone] Chance Cosby MD 07/06/2025 Orders Only [facility] [address] [phone] Chance Cosby MD 07/02/2025 Telephone [facility] Orthopedic Surgery [address] [place] [phone] Chance Cosby MD Surgery 06/26/2025 2:00 PM EDT Consult (Initial) [facility] Orthopedic Surgery [address] [place] [phone] Chance Cosby MD Primary osteoarthritis of right hip (Primary Dx); Lumbar spondylosis 06/26/2025 1:40 PM EDT Radiology [facility] Xray [address] [place] [phone] Right hip pain 06/25/2025 Orders Only [facility] Orthopedic Surgery [address] [facility] [address] [place] [address] Chance Csoby MD from Last 3 Months Social History Tobacco Use Types Packs/Day Years Used Date Smoking Tobacco: Never Assessed Sex and Gender Information Value Date Recorded Sex Assigned at Not on file Legal Sex Male 1:01 AM EDT Gender Identity Not on file Sexual Orientation Not on file Plan of Treatment Upcoming Encounters Date Type Department Care Team ([facility] st Contact Info) Description 09/29/2025 10:30 AM EST Office Visit [facility] Pre-Admission Testing [address] [place] [address] Kathie Jack PA [address] [place] [phone] PRE OP RIGHT HIP REPLACEMENT [facility] 10/28/2025 10/28/2025 12:00 PM EST Office Visit [facility] [address] [place] [phone] Chance Cosby MD [address] [place] [phone] [facility] 10/28/2025 11/26/2025 11:00 AM EDT Office Visit [facility] Orthopedic Surgery [address] [phone] Chance Cosby MD [address] [place] [phone] S/P RIGHT HIP REPLACEMENT [facility] 10/28/2025 Health Maintenance Due Date Last Done Comments Hepatitis C Screening 1966 DTaP/Tdap/Td (1 - Tdap) 01/11/1984 Hep B (1 of 3 - 19+ 3-dose series) 1985 Colon Cancer Screening 2011 Pneumococcal 50+ years (1 of 1 - PCV) 01/11/2016 Zoster (Shingrix) (1 of 2) 01/11/2016 COVID-19 Vaccine (2024-2 6 season) 2025 Influenza (#1) 2025 HPV Vaccine (No Doses Required) Completed Hep A Aged Out No longer eligi ble based on patient's age to complete this topic Hib Aged Out No longer eligi ble based on patient's age to complete this topic Meningococcal ACWY Aged Out No longer eligible based on patient's age to complete this topic Procedures * Due to [place] Poly [employer]ptive law, this organization might not be sharing negative HIV tests. Procedure Name Priority Date/Time Associated Diagnosis Comments XRAY HIP, UNILAT; COMPLETE, 2 OR 3 VIEWS - RIGHT Routine 06/26/2025 1:41 PM EDT Right hip pain from Last 3 Months Results * Due to [place] [employer] law, this organization might not be sharing negative HIV tests. * XRAY HIP, UNILAT; COMPLETE, 2 OR 3 VIEWS - RIGHT (06/26/2025 1:41 PM EDT) Anatomical Region Laterality Modality LOWER EXTREMITY Computed Radiogr aphy Narrative 07/01/2025 3:28 PM EDT Patient History: right hip pain CONTRAST: 2 views right hip with AP pelvis Comparison: None Findings: No fractures or dislocations. Advanced right hip osteoarthritic changes are present with marked superior hip joint space narrowing, as well as superior acetabular and femoral head subchondral cyst formation as well as some apparent or erosion of the superior aspect of the right femoral head. Partially imaged left hip arthroplasty hardware appears intact as visualized. Lower lumbar degenerative changes are present.. Impression: 1. Advanced right hip osteoarthritic changes. Procedure Note Josiah Burch MD - 07/01/2025 Patient History: right hip pain CONTRAST: 2 views right hip with AP pelvis Comparison: None Findings: No fractures or dislocations. Advanced right hip osteoarthritic changesare present with marked superior hip joint space narrowing, as well assuperior acetabular and femoral head subchondral cyst formation as well assome apparent or erosion of the superior aspect of the right femoral head. Partially imaged left hiparthroplasty hardware appears intact as visualized. Lower lumbardegenerative changes are present.. Impression: 1. Advanced right hip osteoarthritic changes. Chance Cosby MD IMG XRAY NO CONTRAST ORDERABLE S Final Result from Last 3 Months Insurance MEDICAID MEDICARE PART B Care Teams Customer Service Receptionist Relationship Specialty Start Date End Date Leonardo Borden MD [facility] [place] [address] [place] [address] PCP - General 11/15/09
--- OUTSIDE RECORDS SUMMARY | 2025-07-06 15:13 | XMS_ITS | Encounter Summary ---
Author Organization [facility] Address [address] [place] [address] Care Team Providers Care Award Clerk Name Role Phone Leonardo Borden MD Primary Care Provider [phone] Encounter Details Date Type Department Care Team (Late Contact Info) Description 07/06/2025 Orders Only [facility] 123 [facility] [address] [place] [address] Chance Cosby MD [address] [place] [address] Social History Tobacco Use Types Packs/Day Years Used Date Smoking Tobacco: Never Assessed Sex and Gender Information Value Date Recorded Sex Assigned at Not on file Legal Sex Male 1:01 AM EDT Gender Identity Not on file Sexual Orientation Not on file documented as of this encounter Plan of Treatment Upcoming Encounters Date Type Department Care Team (Late st Contact Info) Description 09/29/2025 10:30 AM EST Office Visit [facility] Pre-Admission Testing [address] [place] 123 [facility] [address] [place] [address] Kathie Jack PA 123 [facility] [address] [place] [address] PRE OP RIGHT HIP REPLACEMENT [facility] 10/28/2025 10/28/2025 12:00 PM EST Office Visit [facility] [address] [place] [address] Chance Cosby MD [address] [place] [address] RIGHT HIP REPLACEMENT [facility] 10/28/2025 11/26/2025 11:00 AM EDT Office Visit [facility] Orthopedic Surgery [address] [facility] [address] [place] [address] Chance Cosby MD [address] [place] [address] S/P RIGHT HIP REPLACEMENT [facility] 10/28/2025 documented as of this encounter Visit Diagnoses Diagnosis Primary osteoarthritis of right hip- Primary Primary localized osteoarthrosis, pelvic region and thigh Lumbar spondylosis Lumbosacral spondylosis without myelopathy documented in this encounter Care Teams Award Clerk Relationship Specialty Start Date End Date Leonardo Borden MD [facility] [place] [address] [place] [address] PCP - General 11/15/09 documented as of this encounter
== END 2025-07-06 11:47 | disposition home or self-care (01) ==
LOC: HO.10HDL 11:46
PROVIDERS: Visit Provider Internal Medicine
DX: G56.03 Carpal tunnel syndrome, bilateral upper limbs (principal); I10 Essential (primary) hypertension; M16.7 Other unilateral secondary osteoarthritis of hip; N40.0 Benign prostatic hyperplasia without lower urinary tract symptoms; R97.20 Elevated prostate specific antigen [PSA]; Z72.0 Tobacco use; Z12.5 Encounter for screening for malignant neoplasm of prostate
CPT/HCPCS: 36415; 80053; 80061; 84153; 85025